=== PATIENT | male | born 1960 | race American Indian/Alaskan Native ===

== ENCOUNTER 2016-11-17 13:11 | Inpatient (IN) | payer MEDICAID ==
[~2016-11-17] VITALS: Ht 195.6 cm; Wt 150.2 kg
[~2016-11-17 13:11] MED LIST: DIVA500T17 PO; GABA600T2 PO; LACO200T PO; LAMO25TA PO; LEVE10007 PO; OXYC5TAB3 PO; VENL150C PO
[2016-11-17] MEDS ORDERED: SODIUM CHLORIDE FLUSH 10ML SYR IVF ONE (13:30)
[2016-11-17 14:01] LABS: HEMOGLOBIN 11.7 g/dL (13.7-18.0); WHITE BLOOD COUNT 8.4 x10^3/uL (3.4-10)
[2016-11-17 14:05] LABS: BLOOD UREA NITROGEN 8 mg/dL (7-18)
[2016-11-17 14:10] LABS: ASPARTATE AMINO TRANSFERASE 20 U/L (15-37); IS PT STATUS REG ER OR PRE ER? YES
[2016-11-17] MEDS ORDERED: METH20TA5 PO (17:19)
[2016-11-17] MEDS ORDERED: LACO200T PO (17:19)
[2016-11-17] MEDS ORDERED: RIVA15TA PO (17:19)
[2016-11-17] MEDS ORDERED: HYDROcodone/APAP 5/325 TABLET PO ONE (17:30)
[2016-11-17] MEDS ORDERED: HYDROcodone/APAP 5/325 TABLET ONE (17:40)
[2016-11-17] MEDS ORDERED: HEPARIN 25,000 UNITS/500ML PMX 500 ML IV PRN (20:00)
[2016-11-17] MEDS ORDERED: HEPARIN 5,000 UNITS/ML, 1ML IV PRN (20:00)
[2016-11-17] MEDS ORDERED: HEPARIN 5,000 UNITS/ML, 1ML IV ONE (20:00)
[2016-11-17] MEDS ORDERED: SODIUM CHLORIDE FLUSH 10ML SYR IVF PRN (20:00)
[2016-11-17] MEDS ORDERED: HEPARIN 25,000 UNITS/500ML PMX 500 ML ONE (20:33)
[2016-11-17] MEDS ORDERED: HEPARIN 5,000 UNITS/ML, 1ML ONE (20:33)
[2016-11-17] MEDS ORDERED: LORazepam 2 MG/ML, 1ML ONE (20:34)
[2016-11-17] MEDS ORDERED: ONDANSETRON 2MG/ML, 2ML ONE (20:34)
[2016-11-17 21:51] VITALS: BP 117/72
[2016-11-17] MEDS ORDERED: ENALAPRILAT 1.25 MG/ML, 2ML IVPush PRN (23:00)
[2016-11-17] MEDS ORDERED: hydrALAzine 20 MG/ML, 1ML IVPush PRN (23:00)
[2016-11-17] MEDS: OXYcodone IR 5MG TABLET PO PRN (23:17)
[2016-11-17] MEDS: FUROSEMIDE 20 MG/2 ML IV SCH (23:18)
[2016-11-18] MEDS ORDERED: LACOSAMIDE 200 MG PO SCH
[2016-11-18] MEDS: LEVETIRACETAM 500 MG TABLET PO SCH ×3 (00:08→20:48)
[2016-11-18] MEDS: DIVALPROEX 500 MG TAB.ER.24H PO SCH ×2 (00:09→20:49)
[2016-11-18] MEDS: LACOSAMIDE 50 MG TABLET PO SCH ×3 (00:11→20:49)
[2016-11-18] MEDS: morphine SULFATE 10 MG/ML, 1ML IVPush PRN ×5 (01:59→22:34)
[2016-11-18 02:05] VITALS: BP 115/69
[2016-11-18 03:45] LABS: HEMOGLOBIN 11.1 g/dL (13.7-18.0); WHITE BLOOD COUNT 6.8 x10^3/uL (3.4-10)
[2016-11-18 04:04] LABS: ASPARTATE AMINO TRANSFERASE 15 U/L (15-37); BLOOD UREA NITROGEN 11 mg/dL (7-18)
[2016-11-18 07:30] VITALS: BP 107/69
[2016-11-18] MEDS: FUROSEMIDE 20 MG/2 ML IV SCH (07:54)
[2016-11-18] MEDS: SENNA/DOCUSATE TABLET PO SCH ×2 (07:55→08:05)
[2016-11-18] MEDS: LAMOTRIGINE 25 MG TABLET PO SCH ×2 (07:55→20:48)
[2016-11-18] MEDS: GABAPENTIN 400 MG CAPSULE PO SCH ×2 (07:56→20:49)
[2016-11-18] MEDS: VENLAFAXINE 75 MG CAP ER PO SCH (07:59)
[2016-11-18] MEDS: METHYLPHENIDATE HCL 27 MG HOMEMEDPO SCH ×2 (08:11→20:54)
[2016-11-18] MEDS ORDERED: HEPARIN 5,000 UNITS/ML, 1ML IV PRN (10:00)
[2016-11-18 13:08] VITALS: BP 101/66
[2016-11-18] MEDS: HEPARIN 25,000 UNITS/500ML PMX 500 ML IV PRN (14:35)
[2016-11-18] MEDS ORDERED: LIDOCAINE 2%, 20ML ONE (15:58)
[2016-11-18] MEDS ORDERED: VISIPAQUE 320MG/ML, 50ML BOTTLE ONE (16:00)
[2016-11-18] MEDS ORDERED: FENTANYL PF 100 MCG/2ML ONE ×2 (16:09→17:31)
[2016-11-18] MEDS ORDERED: MIDAZOLAM 1 MG/ML, 5ML ONE ×2 (16:09→17:31)
[2016-11-18] MEDS ORDERED: ALTEPLASE 10 MG in SODIUM CHLORIDE 0.9% 90 ML IV SCH ×3 (16:30→20:30)
[2016-11-18] MEDS: OXYcodone IR 5MG TABLET PO PRN (20:25)
[2016-11-18] MEDS: ALTEPLASE 10 MG in SODIUM CHLORIDE 0.9% 90 ML IV SCH (23:58)
[2016-11-19] MEDS: OXYcodone IR 5MG TABLET PO PRN ×4 (00:33→19:22)
[2016-11-19] MEDS: morphine SULFATE 10 MG/ML, 1ML IVPush PRN ×4 (02:06→21:06)
[2016-11-19] MEDS: ALTEPLASE 10 MG in SODIUM CHLORIDE 0.9% 90 ML IV SCH (04:34)
[2016-11-19] MEDS: HEPARIN 25,000 UNITS/500ML PMX 500 ML IV PRN ×2 (04:46→19:19)
[2016-11-19 06:14] LABS: HEMATOCRIT 34.2 % (39.2-51.8); HEMOGLOBIN 11.4 g/dL (13.7-18.0); WHITE BLOOD COUNT 7.7 x10^3/uL (3.4-10)
[2016-11-19 06:28] LABS: BLOOD UREA NITROGEN 12 mg/dL (7-18)
[2016-11-19] MEDS: METHYLPHENIDATE HCL 27 MG HOMEMEDPO SCH ×2 (08:40→20:53)
[2016-11-19] MEDS: SENNA/DOCUSATE TABLET PO SCH (09:00)
[2016-11-19] MEDS: VENLAFAXINE 75 MG CAP ER PO SCH (09:13)
[2016-11-19] MEDS: LACOSAMIDE 50 MG TABLET PO SCH ×2 (09:13→20:52)
[2016-11-19] MEDS: LAMOTRIGINE 25 MG TABLET PO SCH ×2 (10:03→21:33)
[2016-11-19] MEDS: GABAPENTIN 400 MG CAPSULE PO SCH ×2 (10:03→20:52)
[2016-11-19] MEDS: LEVETIRACETAM 500 MG TABLET PO SCH ×2 (10:03→20:51)
[2016-11-19] MEDS ORDERED: NALOXONE 1 MG/ML, 2ML ONE (11:54)
[2016-11-19] MEDS ORDERED: MIDAZOLAM 1 MG/ML, 5ML ONE (11:54)
[2016-11-19] MEDS ORDERED: FENTANYL PF 100 MCG/2ML ONE (11:54)
[2016-11-19] MEDS ORDERED: FLUMAZENIL 0.1 MG/1 ML, 5ML ONE (11:54)
[2016-11-19] MEDS ORDERED: VISIPAQUE 270 MG/ML, 50ML BOTTLE ONE (13:17)
[2016-11-19] MEDS ORDERED: ALTEPLASE 10 MG in SODIUM CHLORIDE 0.9% 90 ML IV SCH (14:00)
[2016-11-19] MEDS: DIVALPROEX 500 MG TAB.ER.24H PO SCH (20:51)
[2016-11-20] MEDS: OXYcodone IR 5MG TABLET PO PRN ×3 (00:15→16:47)
[2016-11-20] MEDS: morphine SULFATE 10 MG/ML, 1ML IVPush PRN ×3 (02:33→20:46)
[2016-11-20 04:18] LABS: HEMATOCRIT 31.9 % (39.2-51.8); HEMOGLOBIN 10.6 g/dL (13.7-18.0); WHITE BLOOD COUNT 6.8 x10^3/uL (3.4-10)
[2016-11-20 04:30] LABS: ASPARTATE AMINO TRANSFERASE 29 U/L (15-37); BLOOD UREA NITROGEN 10 mg/dL (7-18)
[2016-11-20 05:07] VITALS: BP 108/50
[2016-11-20] MEDS: METHYLPHENIDATE HCL 27 MG HOMEMEDPO SCH ×2 (07:25→20:55)
[2016-11-20] MEDS: SENNA/DOCUSATE TABLET PO SCH (07:28)
[2016-11-20] MEDS: GABAPENTIN 400 MG CAPSULE PO SCH ×2 (07:51→20:55)
[2016-11-20] MEDS: LACOSAMIDE 50 MG TABLET PO SCH ×2 (07:51→20:55)
[2016-11-20] MEDS: LAMOTRIGINE 25 MG TABLET PO SCH ×2 (07:51→20:54)
[2016-11-20] MEDS: VENLAFAXINE 75 MG CAP ER PO SCH (07:52)
[2016-11-20] MEDS: LEVETIRACETAM 500 MG TABLET PO SCH ×2 (07:52→20:55)
[2016-11-20] MEDS: HEPARIN 25,000 UNITS/500ML PMX 500 ML IV PRN (10:33)
[2016-11-20] MEDS ORDERED: FENTANYL PF 100 MCG/2ML ONE (13:10)
[2016-11-20] MEDS ORDERED: MIDAZOLAM 1 MG/ML, 5ML ONE (13:10)
[2016-11-20] MEDS ORDERED: FLUMAZENIL 0.1 MG/1 ML, 5ML ONE (13:10)
[2016-11-20] MEDS ORDERED: NALOXONE 1 MG/ML, 2ML ONE (13:10)
[2016-11-20] MEDS ORDERED: VISIPAQUE 320MG/ML, 50ML BOTTLE ONE (15:26)
[2016-11-20 15:45] VITALS: BP 138/78
[2016-11-20 16:00] VITALS: BP 153/76
[2016-11-20] MEDS ORDERED: HEPARIN 5,000 UNITS/ML, 1ML IV ONE (16:00)
[2016-11-20] MEDS ORDERED: HEPARIN PROTOCOL IIB/IIIA POST-LYTIC MC PRN (16:00)
[2016-11-20] MEDS ORDERED: HEPARIN 25,000 UNITS/500ML PMX 500 ML IV PRN (16:00)
[2016-11-20 18:28] LABS: HEMATOCRIT 32.2 % (39.2-51.8); HEMOGLOBIN 10.5 g/dL (13.7-18.0); WHITE BLOOD COUNT 9.7 x10^3/uL (3.4-10)
[2016-11-20] MEDS: DIVALPROEX 500 MG TAB.ER.24H PO SCH (20:54)
[2016-11-21] MEDS: OXYcodone IR 5MG TABLET PO PRN ×5 (00:18→21:33)
[2016-11-21] MEDS: ONDANSETRON 2MG/ML, 2ML IVPush PRN (03:30)
[2016-11-21] MEDS: morphine SULFATE 10 MG/ML, 1ML IVPush PRN ×5 (03:47→23:09)
[2016-11-21 06:03] LABS: HEMATOCRIT 31.3 % (39.2-51.8); HEMOGLOBIN 10.6 g/dL (13.7-18.0); WHITE BLOOD COUNT 7.5 x10^3/uL (3.4-10)
[2016-11-21 06:09] LABS: BLOOD UREA NITROGEN 9 mg/dL (7-18)
[2016-11-21] MEDS: SENNA/DOCUSATE TABLET PO SCH (08:52)
[2016-11-21] MEDS: LACOSAMIDE 50 MG TABLET PO SCH ×2 (08:52→21:26)
[2016-11-21] MEDS: LEVETIRACETAM 500 MG TABLET PO SCH ×2 (08:58→21:27)
[2016-11-21] MEDS: GABAPENTIN 400 MG CAPSULE PO SCH ×2 (08:59→21:27)
[2016-11-21] MEDS: VENLAFAXINE 75 MG CAP ER PO SCH (09:00)
[2016-11-21] MEDS: LAMOTRIGINE 25 MG TABLET PO SCH ×2 (09:01→21:26)
[2016-11-21] MEDS: METHYLPHENIDATE HCL 27 MG HOMEMEDPO SCH ×2 (09:01→21:00)
[2016-11-21] MEDS ORDERED: HEPARIN 5,000 UNITS/ML, 1ML IV ONE (09:30)
[2016-11-21] MEDS: HEPARIN 25,000 UNITS/500ML PMX 500 ML IV PRN ×2 (09:37→21:32)
[2016-11-21] MEDS: BISACODYL 10 MG SUPP PR PRN (16:58)
[2016-11-21] MEDS: HEPARIN 5,000 UNITS/ML, 1ML IV PRN (17:44)
[2016-11-21] MEDS ORDERED: WARFARIN 7.5 MG TABLET PO-COUM ONE (18:00)
[2016-11-21] MEDS: DIVALPROEX 500 MG TAB.ER.24H PO SCH (21:27)
[2016-11-21 23:35] VITALS: BP 100/62
[2016-11-22] MEDS: morphine SULFATE 10 MG/ML, 1ML IVPush PRN ×6 (03:34→22:19)
[2016-11-22 05:43] LABS: ANTI-Xa-UNFRACTIONATED HEP 0.03 IU/mL (0.30-0.70)
[2016-11-22 05:48] LABS: ASPARTATE AMINO TRANSFERASE 20 U/L (15-37); BLOOD UREA NITROGEN 8 mg/dL (7-18)
[2016-11-22 05:49] LABS: HEMATOCRIT 30.7 % (39.2-51.8); HEMOGLOBIN 10.1 g/dL (13.7-18.0); WHITE BLOOD COUNT 5.3 x10^3/uL (3.4-10)
[2016-11-22] MEDS: HEPARIN 5,000 UNITS/ML, 1ML IV PRN (06:08)
[2016-11-22] MEDS: OXYcodone IR 5MG TABLET PO PRN ×4 (06:12→20:36)
[2016-11-22] MEDS: METHYLPHENIDATE HCL 27 MG HOMEMEDPO SCH ×2 (07:36→14:04)
[2016-11-22 08:00] VITALS: BP 111/59
[2016-11-22] MEDS: VENLAFAXINE 75 MG CAP ER PO SCH (08:10)
[2016-11-22] MEDS: GABAPENTIN 400 MG CAPSULE PO SCH ×2 (08:10→20:40)
[2016-11-22] MEDS: LAMOTRIGINE 25 MG TABLET PO SCH ×2 (08:11→20:39)
[2016-11-22] MEDS: SENNA/DOCUSATE TABLET PO SCH (08:11)
[2016-11-22] MEDS: LEVETIRACETAM 500 MG TABLET PO SCH ×2 (08:11→20:39)
[2016-11-22] MEDS: LACOSAMIDE 50 MG TABLET PO SCH ×2 (08:11→20:43)
[2016-11-22] MEDS: HEPARIN 25,000 UNITS/500ML PMX 500 ML IV PRN (11:40)
[2016-11-22] MEDS ORDERED: ARGATROBAN MC ONE (12:00)
[2016-11-22] MEDS ORDERED: HEPARIN MC ONE (12:00)
[2016-11-22] MEDS: WARFARIN MODERAT DOSE PROTOCOL XX SCH (12:00)
[2016-11-22] MEDS ORDERED: ARGATROBAN/NACL 50 MG/50 ML 50 ML IV PRN (12:00)
[2016-11-22 14:26] VITALS: BP 122/63
[2016-11-22] MEDS ORDERED: ARGATROBAN 250 MG in SODIUM CHLORIDE 0.9% 250 ML IV PRN (16:30)
[2016-11-22] MEDS ORDERED: WARFARIN 10 MG TABLET PO-COUM ONE (18:00)
[2016-11-22 19:16] VITALS: BP 118/54
[2016-11-22] MEDS: DIVALPROEX 500 MG TAB.ER.24H PO SCH (20:39)
[2016-11-22 21:04] VITALS: BP 113/62
[2016-11-23] MEDS: OXYcodone IR 5MG TABLET PO PRN ×4 (00:47→18:13)
[2016-11-23 01:16] VITALS: BP 110/71
[2016-11-23] MEDS: ARGATROBAN 250 MG in SODIUM CHLORIDE 0.9% 250 ML IV PRN ×2 (03:52→15:43)
[2016-11-23] MEDS: morphine SULFATE 10 MG/ML, 1ML IVPush PRN ×4 (03:57→21:06)
[2016-11-23 06:28] LABS: HEMATOCRIT 28.1 % (39.2-51.8); HEMOGLOBIN 9.5 g/dL (13.7-18.0); WHITE BLOOD COUNT 6.4 x10^3/uL (3.4-10)
[2016-11-23 06:46] LABS: ASPARTATE AMINO TRANSFERASE 19 U/L (15-37); BLOOD UREA NITROGEN 10 mg/dL (7-18)
[2016-11-23 08:20] VITALS: BP 122/70
[2016-11-23] MEDS: METHYLPHENIDATE HCL 27 MG HOMEMEDPO SCH (09:00)
[2016-11-23] MEDS: LAMOTRIGINE 25 MG TABLET PO SCH ×2 (09:05→20:45)
[2016-11-23] MEDS: LEVETIRACETAM 500 MG TABLET PO SCH ×2 (09:05→20:45)
[2016-11-23] MEDS: VENLAFAXINE 75 MG CAP ER PO SCH (09:05)
[2016-11-23] MEDS: SENNA/DOCUSATE TABLET PO SCH (09:06)
[2016-11-23] MEDS: GABAPENTIN 400 MG CAPSULE PO SCH ×2 (09:06→20:44)
[2016-11-23] MEDS: LACOSAMIDE 50 MG TABLET PO SCH ×2 (09:07→20:45)
[2016-11-23] MEDS: WARFARIN MODERAT DOSE PROTOCOL XX SCH (11:31)
[2016-11-23 14:23] VITALS: BP 124/76
[2016-11-23] MEDS ORDERED: WARFARIN 2.5 MG TABLET PO-COUM SCH (18:00)
[2016-11-23 20:00] VITALS: BP 112/65
[2016-11-23] MEDS: DIVALPROEX 500 MG TAB.ER.24H PO SCH (20:44)
[2016-11-24] MEDS: OXYcodone IR 5MG TABLET PO PRN ×5 (00:10→22:55)
[2016-11-24 01:23] VITALS: BP 102/64
[2016-11-24] MEDS: ARGATROBAN 250 MG in SODIUM CHLORIDE 0.9% 250 ML IV PRN ×2 (03:02→14:12)
[2016-11-24 05:18] LABS: HEMATOCRIT 27.7 % (39.2-51.8); HEMOGLOBIN 9.4 g/dL (13.7-18.0); WHITE BLOOD COUNT 7.1 x10^3/uL (3.4-10)
[2016-11-24 05:28] LABS: BLOOD UREA NITROGEN 9 mg/dL (7-18)
[2016-11-24 05:32] LABS: ASPARTATE AMINO TRANSFERASE 14 U/L (15-37)
[2016-11-24] MEDS: morphine SULFATE 10 MG/ML, 1ML IVPush PRN ×2 (06:09→11:09)
[2016-11-24 08:35] VITALS: BP 110/54
[2016-11-24] MEDS: LACOSAMIDE 50 MG TABLET PO SCH ×2 (08:50→20:41)
[2016-11-24] MEDS: LEVETIRACETAM 500 MG TABLET PO SCH ×2 (08:51→20:41)
[2016-11-24] MEDS: SENNA/DOCUSATE TABLET PO SCH (08:51)
[2016-11-24] MEDS: GABAPENTIN 400 MG CAPSULE PO SCH ×2 (08:51→20:41)
[2016-11-24] MEDS: LAMOTRIGINE 25 MG TABLET PO SCH ×2 (08:52→20:41)
[2016-11-24] MEDS: VENLAFAXINE 75 MG CAP ER PO SCH (08:52)
[2016-11-24] MEDS: WARFARIN MODERAT DOSE PROTOCOL XX SCH (12:00)
[2016-11-24 12:17] VITALS: BP 119/62
[2016-11-24] MEDS: DIAZEPAM 2 MG TABLET PO PRN (17:33)
[2016-11-24] MEDS ORDERED: WARFARIN 7.5 MG TABLET PO-COUM SCH (18:00)
[2016-11-24 19:56] VITALS: BP 139/68
[2016-11-24] MEDS: DIVALPROEX 500 MG TAB.ER.24H PO SCH (20:41)
[2016-11-25] MEDS: ARGATROBAN 250 MG in SODIUM CHLORIDE 0.9% 250 ML IV PRN ×3 (01:57→23:55)
[2016-11-25 02:34] VITALS: BP 119/63
[2016-11-25] MEDS: OXYcodone IR 5MG TABLET PO PRN ×4 (04:13→21:47)
[2016-11-25] MEDS: VENLAFAXINE 75 MG CAP ER PO SCH (06:50)
[2016-11-25] MEDS: DIAZEPAM 2 MG TABLET PO PRN (06:57)
[2016-11-25 07:51] VITALS: BP 119/66
[2016-11-25] MEDS: MORPHINE SULFATE 4 MG/ML, 1ML IVPush PRN ×3 (07:54→17:26)
[2016-11-25] MEDS: LAMOTRIGINE 25 MG TABLET PO SCH ×2 (09:41→21:47)
[2016-11-25] MEDS: LEVETIRACETAM 500 MG TABLET PO SCH ×2 (09:42→21:46)
[2016-11-25] MEDS: GABAPENTIN 400 MG CAPSULE PO SCH ×2 (09:42→21:47)
[2016-11-25] MEDS: LACOSAMIDE 50 MG TABLET PO SCH ×2 (09:42→21:47)
[2016-11-25] MEDS: SENNA/DOCUSATE TABLET PO SCH (09:42)
[2016-11-25] MEDS: WARFARIN MODERAT DOSE PROTOCOL XX SCH (12:00)
[2016-11-25 15:00] VITALS: BP 122/66
[2016-11-25] MEDS: METHYLNALTREXONE 12 MG/0.6 ML SQ SCH (16:07)
[2016-11-25 16:44] VITALS: BP 126/67
[2016-11-25] MEDS ORDERED: WARFARIN 5 MG TABLET PO-COUM ONE (18:00)
[2016-11-25 20:07] VITALS: BP 121/67
[2016-11-25] MEDS: DIVALPROEX 500 MG TAB.ER.24H PO SCH (21:46)
[2016-11-26 02:55] VITALS: BP 129/62
[2016-11-26] MEDS: MORPHINE SULFATE 4 MG/ML, 1ML IVPush PRN ×5 (03:15→22:04)
[2016-11-26] MEDS: OXYcodone IR 5MG TABLET PO PRN ×5 (04:54→21:01)
[2016-11-26 06:02] LABS: HEMOGLOBIN 9.4 g/dL (13.7-18.0); WHITE BLOOD COUNT 10.4 x10^3/uL (3.4-10)
[2016-11-26 06:06] LABS: BLOOD UREA NITROGEN 12 mg/dL (7-18)
[2016-11-26 06:17] LABS: ASPARTATE AMINO TRANSFERASE 11 U/L (15-37)
[2016-11-26] MEDS: DIAZEPAM 2 MG TABLET PO PRN (06:34)
[2016-11-26 08:00] VITALS: BP 153/79
[2016-11-26] MEDS: LEVETIRACETAM 500 MG TABLET PO SCH ×2 (08:12→21:02)
[2016-11-26] MEDS: LACOSAMIDE 50 MG TABLET PO SCH ×2 (08:13→21:02)
[2016-11-26] MEDS: LAMOTRIGINE 25 MG TABLET PO SCH ×2 (08:13→21:02)
[2016-11-26] MEDS: SENNA/DOCUSATE TABLET PO SCH (08:13)
[2016-11-26] MEDS: GABAPENTIN 400 MG CAPSULE PO SCH ×2 (08:13→21:02)
[2016-11-26] MEDS: VENLAFAXINE 75 MG CAP ER PO SCH (08:14)
[2016-11-26] MEDS ORDERED: morphine SULFATE 10 MG/ML, 1ML ONE ×2 (09:36→13:57)
[2016-11-26] MEDS: WARFARIN MODERAT DOSE PROTOCOL XX SCH (12:00)
[2016-11-26 14:52] VITALS: BP 149/84
[2016-11-26] MEDS ORDERED: WARFARIN 2.5 MG TABLET PO-COUM SCH (18:00)
[2016-11-26] MEDS ORDERED: WARFARIN 5 MG TABLET PO-COUM SCH (18:00)
[2016-11-26 19:44] VITALS: BP 114/60
[2016-11-26] MEDS: DIVALPROEX 500 MG TAB.ER.24H PO SCH (21:02)
[2016-11-27] MEDS: OXYcodone IR 5MG TABLET PO PRN ×4 (00:01→21:56)
[2016-11-27 00:18] VITALS: BP 151/94
[2016-11-27] MEDS ORDERED: morphine SULFATE 10 MG/ML, 1ML ONE ×2 (02:28→06:47)
[2016-11-27] MEDS: MORPHINE SULFATE 4 MG/ML, 1ML IVPush PRN ×3 (02:33→11:38)
[2016-11-27 08:30] VITALS: BP 126/67
[2016-11-27] MEDS: LEVETIRACETAM 500 MG TABLET PO SCH ×2 (08:35→20:33)
[2016-11-27] MEDS: VENLAFAXINE 75 MG CAP ER PO SCH (08:35)
[2016-11-27] MEDS: LAMOTRIGINE 25 MG TABLET PO SCH ×2 (08:36→20:32)
[2016-11-27] MEDS: GABAPENTIN 400 MG CAPSULE PO SCH ×2 (08:36→20:34)
[2016-11-27] MEDS: LACOSAMIDE 50 MG TABLET PO SCH ×2 (08:36→20:33)
[2016-11-27] MEDS: SENNA/DOCUSATE TABLET PO SCH (09:00)
[2016-11-27] MEDS: WARFARIN MODERAT DOSE PROTOCOL XX SCH (12:00)
[2016-11-27] MEDS ORDERED: FUROSEMIDE 20 MG/2 ML IV ONE (13:00)
[2016-11-27] MEDS: METHYLNALTREXONE 12 MG/0.6 ML SQ SCH (13:54)
[2016-11-27 14:30] VITALS: BP 130/76
[2016-11-27] MEDS ORDERED: WARFARIN 5 MG TABLET PO-COUM SCH (18:00)
[2016-11-27] MEDS ORDERED: MORPHINE SULFATE 4 MG/ML, 1ML IVPush PRN (20:00)
[2016-11-27] MEDS: DIVALPROEX 500 MG TAB.ER.24H PO SCH (20:34)
[2016-11-27 20:44] VITALS: BP 144/78
[2016-11-27] MEDS: DIAZEPAM 2 MG TABLET PO PRN (21:56)
[2016-11-28 01:42] VITALS: BP 106/61
[2016-11-28] MEDS: OXYcodone IR 5MG TABLET PO PRN ×5 (02:21→21:07)
[2016-11-28] MEDS: DIAZEPAM 2 MG TABLET PO PRN ×2 (05:35→21:07)
[2016-11-28 08:04] VITALS: BP 147/84
[2016-11-28] MEDS: VENLAFAXINE 75 MG CAP ER PO SCH (08:56)
[2016-11-28] MEDS: FUROSEMIDE 20 MG/2 ML IV SCH (08:56)
[2016-11-28] MEDS: LAMOTRIGINE 25 MG TABLET PO SCH ×2 (08:57→21:07)
[2016-11-28] MEDS: GABAPENTIN 400 MG CAPSULE PO SCH ×2 (08:57→21:06)
[2016-11-28] MEDS: LACOSAMIDE 50 MG TABLET PO SCH ×2 (08:57→21:07)
[2016-11-28] MEDS: LEVETIRACETAM 500 MG TABLET PO SCH ×2 (08:57→21:07)
[2016-11-28] MEDS: SENNA/DOCUSATE TABLET PO SCH (08:58)
[2016-11-28] MEDS: WARFARIN MODERAT DOSE PROTOCOL XX SCH (12:00)
[2016-11-28 15:53] VITALS: BP 140/85
[2016-11-28] MEDS ORDERED: WARFARIN 5 MG TABLET PO-COUM SCH (18:00)
[2016-11-28 20:34] VITALS: BP 113/56
[2016-11-28] MEDS: DIVALPROEX 500 MG TAB.ER.24H PO SCH (21:07)
[2016-11-29 02:00] VITALS: BP 120/77
[2016-11-29] MEDS: OXYcodone IR 5MG TABLET PO PRN ×5 (02:22→21:25)
[2016-11-29 04:40] LABS: HEMATOCRIT 26.7 % (39.2-51.8); HEMOGLOBIN 8.8 g/dL (13.7-18.0); WHITE BLOOD COUNT 8.8 x10^3/uL (3.4-10)
[2016-11-29 04:47] LABS: BLOOD UREA NITROGEN 9 mg/dL (7-18)
[2016-11-29 04:48] LABS: ASPARTATE AMINO TRANSFERASE 14 U/L (15-37)
[2016-11-29 07:21] VITALS: BP 107/57
[2016-11-29] MEDS: FUROSEMIDE 20 MG/2 ML IV SCH (09:05)
[2016-11-29] MEDS: LEVETIRACETAM 500 MG TABLET PO SCH ×2 (09:06→21:25)
[2016-11-29] MEDS: POLYETHYLENE GLYCOL 17 GM PACKET PO PRN (09:06)
[2016-11-29] MEDS: LACOSAMIDE 50 MG TABLET PO SCH ×2 (09:06→21:25)
[2016-11-29] MEDS: SENNA/DOCUSATE TABLET PO SCH (09:06)
[2016-11-29] MEDS: GABAPENTIN 400 MG CAPSULE PO SCH ×2 (09:06→21:25)
[2016-11-29] MEDS: LAMOTRIGINE 25 MG TABLET PO SCH ×2 (09:07→21:25)
[2016-11-29] MEDS: VENLAFAXINE 75 MG CAP ER PO SCH (09:07)
[2016-11-29] MEDS: DIAZEPAM 2 MG TABLET PO PRN ×2 (10:45→21:25)
[2016-11-29] MEDS: WARFARIN MODERAT DOSE PROTOCOL XX SCH (11:17)
[2016-11-29] MEDS: ACETAMINOPHEN 325 MG TABLET PO PRN (15:28)
[2016-11-29] MEDS: METHYLNALTREXONE 12 MG/0.6 ML SQ SCH (15:29)
[2016-11-29 15:33] VITALS: BP 116/53
[2016-11-29] MEDS ORDERED: hydrALAzine 20 MG/ML, 1ML IVPush PRN (16:30)
[2016-11-29] MEDS ORDERED: ENALAPRILAT 1.25 MG/ML, 2ML IVPush PRN (16:30)
[2016-11-29] MEDS ORDERED: WARFARIN 1 MG TABLET PO-COUM SCH (18:00)
[2016-11-29 20:00] VITALS: BP 99/51
[2016-11-29] MEDS: DIVALPROEX 500 MG TAB.ER.24H PO SCH (21:25)
[2016-11-30 02:00] VITALS: BP 119/58
[2016-11-30] MEDS: OXYcodone IR 5MG TABLET PO PRN ×6 (02:37→21:11)
[2016-11-30] MEDS: DIAZEPAM 2 MG TABLET PO PRN (05:54)
[2016-11-30 08:30] VITALS: BP 133/72
[2016-11-30] MEDS: SENNA/DOCUSATE TABLET PO SCH (08:30)
[2016-11-30] MEDS: FUROSEMIDE 20 MG/2 ML IV SCH (08:30)
[2016-11-30] MEDS: POLYETHYLENE GLYCOL 17 GM PACKET PO PRN (08:31)
[2016-11-30] MEDS: ACETAMINOPHEN 325 MG TABLET PO PRN ×2 (08:31→14:57)
[2016-11-30] MEDS: GABAPENTIN 400 MG CAPSULE PO SCH ×2 (08:31→21:09)
[2016-11-30] MEDS: LACOSAMIDE 50 MG TABLET PO SCH ×2 (08:31→21:10)
[2016-11-30] MEDS: LAMOTRIGINE 25 MG TABLET PO SCH ×2 (08:31→21:10)
[2016-11-30] MEDS: LEVETIRACETAM 500 MG TABLET PO SCH ×2 (08:31→21:10)
[2016-11-30] MEDS: VENLAFAXINE 75 MG CAP ER PO SCH (08:31)
[2016-11-30] MEDS ORDERED: PINK LADY ENEMA 1,000 ML PR PRN (10:30)
[2016-11-30] MEDS ORDERED: BISACODYL 10 MG SUPP PR PRN (10:30)
[2016-11-30] MEDS: WARFARIN MODERAT DOSE PROTOCOL XX SCH (11:00)
[2016-11-30] MEDS ORDERED: HYDR-3237 PO (11:27)
[2016-11-30 14:30] VITALS: BP 116/53
[2016-11-30] MEDS: BISACODYL 10 MG SUPP PR PRN (14:57)
[2016-11-30] MEDS ORDERED: WARFARIN 2.5 MG TABLET PO-COUM SCH (18:00)
[2016-11-30 20:00] VITALS: BP 130/68
[2016-11-30] MEDS: DIVALPROEX 500 MG TAB.ER.24H PO SCH (21:10)
[2016-12-01] MEDS: OXYcodone IR 5MG TABLET PO PRN ×7 (01:13→22:46)
[2016-12-01 02:00] VITALS: BP 123/65
[2016-12-01] MEDS: ACETAMINOPHEN 325 MG TABLET PO PRN ×3 (04:16→17:30)
[2016-12-01 05:50] LABS: HEMATOCRIT 26.4 % (39.2-51.8); HEMOGLOBIN 8.6 g/dL (13.7-18.0); WHITE BLOOD COUNT 8.4 x10^3/uL (3.4-10)
[2016-12-01 06:03] LABS: BLOOD UREA NITROGEN 11 mg/dL (7-18)
[2016-12-01 08:30] VITALS: BP 109/59
[2016-12-01] MEDS: SENNA/DOCUSATE TABLET PO SCH (09:04)
[2016-12-01] MEDS: FUROSEMIDE 20 MG/2 ML IV SCH (09:04)
[2016-12-01] MEDS: LACOSAMIDE 50 MG TABLET PO SCH ×2 (09:04→19:47)
[2016-12-01] MEDS: GABAPENTIN 400 MG CAPSULE PO SCH ×2 (09:04→19:47)
[2016-12-01] MEDS: LEVETIRACETAM 500 MG TABLET PO SCH ×2 (09:04→19:47)
[2016-12-01] MEDS: VENLAFAXINE 75 MG CAP ER PO SCH (09:05)
[2016-12-01] MEDS: LAMOTRIGINE 25 MG TABLET PO SCH ×2 (09:05→19:46)
[2016-12-01] MEDS: POLYETHYLENE GLYCOL 17 GM PACKET PO PRN (09:39)
[2016-12-01] MEDS ORDERED: FUROSEMIDE 20 MG/2 ML IV ONE (10:30)
[2016-12-01] MEDS: DIAZEPAM 2 MG TABLET PO PRN (11:38)
[2016-12-01] MEDS: WARFARIN MODERAT DOSE PROTOCOL XX SCH (12:00)
[2016-12-01] MEDS: METHYLNALTREXONE 12 MG/0.6 ML SQ SCH (14:30)
[2016-12-01 15:40] VITALS: BP 110/60
[2016-12-01] MEDS ORDERED: WARFARIN 2 MG TABLET PO-COUM ONE (18:00)
[2016-12-01] MEDS: DIVALPROEX 500 MG TAB.ER.24H PO SCH (19:47)
[2016-12-01 20:00] VITALS: BP 141/65
[2016-12-02] MEDS: DIAZEPAM 2 MG TABLET PO PRN ×2 (00:05→06:03)
[2016-12-02] MEDS: OXYcodone IR 5MG TABLET PO PRN ×7 (01:56→23:18)
[2016-12-02 02:00] VITALS: BP 134/73
[2016-12-02 06:10] LABS: BLOOD UREA NITROGEN 10 mg/dL (7-18)
[2016-12-02] MEDS: SENNA/DOCUSATE TABLET PO SCH (08:27)
[2016-12-02] MEDS: LAMOTRIGINE 25 MG TABLET PO SCH ×2 (08:27→20:08)
[2016-12-02] MEDS: GABAPENTIN 400 MG CAPSULE PO SCH ×2 (08:27→20:09)
[2016-12-02] MEDS: LEVETIRACETAM 500 MG TABLET PO SCH ×2 (08:27→20:09)
[2016-12-02] MEDS: LACOSAMIDE 50 MG TABLET PO SCH ×2 (08:28→20:08)
[2016-12-02] MEDS: VENLAFAXINE 75 MG CAP ER PO SCH (08:28)
[2016-12-02] MEDS: FUROSEMIDE 20 MG/2 ML IV SCH (08:28)
[2016-12-02 09:00] VITALS: BP 120/59
[2016-12-02] MEDS: WARFARIN MODERAT DOSE PROTOCOL XX SCH (12:00)
[2016-12-02 16:48] VITALS: BP 141/66
[2016-12-02] MEDS ORDERED: WARFARIN 2 MG TABLET PO-COUM ONE (18:00)
[2016-12-02 19:43] VITALS: BP 148/78
[2016-12-02] MEDS: DIVALPROEX 500 MG TAB.ER.24H PO SCH (20:09)
[2016-12-03 02:00] VITALS: BP 146/81
[2016-12-03] MEDS: OXYcodone IR 5MG TABLET PO PRN ×5 (03:00→21:30)
[2016-12-03 07:02] VITALS: BP 146/71
[2016-12-03] MEDS: VENLAFAXINE 75 MG CAP ER PO SCH (08:21)
[2016-12-03] MEDS: LEVETIRACETAM 500 MG TABLET PO SCH ×2 (08:21→21:31)
[2016-12-03] MEDS: FUROSEMIDE 20 MG/2 ML IV SCH (08:21)
[2016-12-03] MEDS: LAMOTRIGINE 25 MG TABLET PO SCH ×2 (08:21→21:30)
[2016-12-03] MEDS: SENNA/DOCUSATE TABLET PO SCH (08:22)
[2016-12-03] MEDS: LACOSAMIDE 50 MG TABLET PO SCH ×2 (08:22→21:30)
[2016-12-03] MEDS: GABAPENTIN 400 MG CAPSULE PO SCH ×2 (08:22→21:30)
[2016-12-03] MEDS: WARFARIN MODERAT DOSE PROTOCOL XX SCH (12:00)
[2016-12-03 13:59] VITALS: BP 131/70
[2016-12-03] MEDS ORDERED: MORPHINE SULFATE 4 MG/ML, 1ML IVPush PRN (14:00)
[2016-12-03] MEDS: METHYLNALTREXONE 12 MG/0.6 ML SQ SCH (16:17)
[2016-12-03] MEDS ORDERED: WARFARIN 1 MG TABLET PO-COUM SCH (18:00)
[2016-12-03 19:22] VITALS: BP 129/74
[2016-12-03] MEDS: DIVALPROEX 500 MG TAB.ER.24H PO SCH (21:31)
[2016-12-04] MEDS: OXYcodone IR 5MG TABLET PO PRN ×3 (01:51→20:47)
[2016-12-04 01:57] VITALS: BP 138/73
[2016-12-04 08:00] VITALS: BP 155/89
[2016-12-04] MEDS: SENNA/DOCUSATE TABLET PO SCH (09:00)
[2016-12-04] MEDS: FUROSEMIDE 20 MG/2 ML IV SCH (09:08)
[2016-12-04] MEDS: LAMOTRIGINE 25 MG TABLET PO SCH ×2 (09:08→22:32)
[2016-12-04] MEDS: LEVETIRACETAM 500 MG TABLET PO SCH ×2 (09:08→20:47)
[2016-12-04] MEDS: VENLAFAXINE 75 MG CAP ER PO SCH (09:08)
[2016-12-04] MEDS: GABAPENTIN 400 MG CAPSULE PO SCH ×2 (09:08→20:47)
[2016-12-04] MEDS: LACOSAMIDE 50 MG TABLET PO SCH ×2 (09:09→20:47)
[2016-12-04] MEDS: WARFARIN MODERAT DOSE PROTOCOL XX SCH (12:00)
[2016-12-04 14:30] VITALS: BP 117/62
[2016-12-04] MEDS ORDERED: WARFARIN 1 MG TABLET PO-COUM ONE (18:00)
[2016-12-04 20:08] VITALS: BP 109/58
[2016-12-04] MEDS: DIVALPROEX 500 MG TAB.ER.24H PO SCH (20:47)
[2016-12-04] MEDS: DIAZEPAM 2 MG TABLET PO PRN (22:32)
[2016-12-05] MEDS: OXYcodone IR 5MG TABLET PO PRN ×4 (00:06→21:40)
[2016-12-05] MEDS: DIAZEPAM 2 MG TABLET PO PRN ×3 (00:07→23:40)
[2016-12-05 03:06] VITALS: BP 140/73
[2016-12-05 08:17] VITALS: BP 127/70
[2016-12-05] MEDS: VENLAFAXINE 75 MG CAP ER PO SCH (08:29)
[2016-12-05] MEDS: FUROSEMIDE 20 MG/2 ML IV SCH (08:30)
[2016-12-05] MEDS: LACOSAMIDE 50 MG TABLET PO SCH ×2 (08:30→21:46)
[2016-12-05] MEDS: SENNA/DOCUSATE TABLET PO SCH (08:30)
[2016-12-05] MEDS: LEVETIRACETAM 500 MG TABLET PO SCH ×2 (08:30→21:46)
[2016-12-05] MEDS: GABAPENTIN 400 MG CAPSULE PO SCH ×2 (08:30→21:46)
[2016-12-05] MEDS: LAMOTRIGINE 25 MG TABLET PO SCH ×2 (08:30→21:46)
[2016-12-05] MEDS: WARFARIN MODERAT DOSE PROTOCOL XX SCH (12:00)
[2016-12-05 14:05] VITALS: BP 116/67
[2016-12-05] MEDS: METHYLNALTREXONE 12 MG/0.6 ML SQ SCH (14:05)
[2016-12-05] MEDS ORDERED: WARFARIN 2 MG TABLET PO-COUM ONE (18:00)
[2016-12-05] MEDS ORDERED: MORPHINE SULFATE 4 MG/ML, 1ML IVPush PRN (20:00)
[2016-12-05] MEDS ORDERED: ENALAPRILAT 1.25 MG/ML, 2ML IVPush PRN (20:00)
[2016-12-05] MEDS ORDERED: hydrALAzine 20 MG/ML, 1ML IVPush PRN (20:00)
[2016-12-05 21:17] VITALS: BP 126/75
[2016-12-05] MEDS: DIVALPROEX 500 MG TAB.ER.24H PO SCH (21:46)
[2016-12-06] MEDS: OXYcodone IR 5MG TABLET PO PRN ×4 (03:13→21:24)
[2016-12-06 03:15] VITALS: BP 127/73
[2016-12-06] MEDS: DIAZEPAM 2 MG TABLET PO PRN ×2 (05:24→23:23)
[2016-12-06 08:40] VITALS: BP 91/52
[2016-12-06] MEDS: FUROSEMIDE 20 MG/2 ML IV SCH (09:16)
[2016-12-06] MEDS: LAMOTRIGINE 25 MG TABLET PO SCH ×2 (09:17→21:23)
[2016-12-06] MEDS: VENLAFAXINE 75 MG CAP ER PO SCH (09:17)
[2016-12-06] MEDS: LACOSAMIDE 50 MG TABLET PO SCH ×2 (09:17→21:24)
[2016-12-06] MEDS: LEVETIRACETAM 500 MG TABLET PO SCH ×2 (09:18→21:23)
[2016-12-06] MEDS: GABAPENTIN 400 MG CAPSULE PO SCH ×2 (09:18→21:23)
[2016-12-06] MEDS: SENNA/DOCUSATE TABLET PO SCH (09:18)
[2016-12-06] MEDS: WARFARIN MODERAT DOSE PROTOCOL XX SCH (12:00)
[2016-12-06] MEDS ORDERED: WARFARIN 3 MG TABLET PO-COUM SCH (18:00)
[2016-12-06 18:11] VITALS: BP 160/68
[2016-12-06 20:48] VITALS: BP 136/79
[2016-12-06] MEDS: DIVALPROEX 500 MG TAB.ER.24H PO SCH (21:23)
[2016-12-07] MEDS: OXYcodone IR 5MG TABLET PO PRN ×5 (01:43→21:01)
[2016-12-07 01:50] VITALS: BP 127/79
[2016-12-07] MEDS: DIAZEPAM 2 MG TABLET PO PRN ×3 (05:07→23:55)
[2016-12-07 07:49] VITALS: BP 139/72
[2016-12-07] MEDS: GABAPENTIN 400 MG CAPSULE PO SCH ×2 (08:07→21:00)
[2016-12-07] MEDS: LEVETIRACETAM 500 MG TABLET PO SCH ×2 (08:08→20:59)
[2016-12-07] MEDS: VENLAFAXINE 75 MG CAP ER PO SCH (08:08)
[2016-12-07] MEDS: LACOSAMIDE 50 MG TABLET PO SCH ×2 (08:08→21:01)
[2016-12-07] MEDS: SENNA/DOCUSATE TABLET PO SCH (08:08)
[2016-12-07] MEDS: LAMOTRIGINE 25 MG TABLET PO SCH ×2 (08:08→21:00)
[2016-12-07] MEDS: FUROSEMIDE 20 MG/2 ML IV SCH (08:09)
[2016-12-07] MEDS ORDERED: WARFARIN 5 MG TABLET PO-COUM ONE (11:00)
[2016-12-07] MEDS: WARFARIN MODERAT DOSE PROTOCOL XX SCH (11:13)
[2016-12-07 13:32] VITALS: BP 128/65
[2016-12-07] MEDS ORDERED: WARFARIN 5 MG TABLET PO-COUM SCH (18:00)
[2016-12-07 20:00] VITALS: BP 128/78
[2016-12-07] MEDS: DIVALPROEX 500 MG TAB.ER.24H PO SCH (20:59)
[2016-12-07] MEDS: METHYLNALTREXONE 12 MG/0.6 ML SQ SCH (21:00)
[2016-12-08 02:00] VITALS: BP 133/71
[2016-12-08] MEDS: OXYcodone IR 5MG TABLET PO PRN ×5 (04:25→23:43)
[2016-12-08] MEDS: LACOSAMIDE 50 MG TABLET PO SCH ×2 (07:59→21:17)
[2016-12-08] MEDS: FUROSEMIDE 20 MG/2 ML IV SCH (07:59)
[2016-12-08] MEDS: LAMOTRIGINE 25 MG TABLET PO SCH ×2 (08:00→21:15)
[2016-12-08] MEDS: LEVETIRACETAM 500 MG TABLET PO SCH ×2 (08:00→21:17)
[2016-12-08] MEDS: GABAPENTIN 400 MG CAPSULE PO SCH ×2 (08:00→21:18)
[2016-12-08] MEDS: SENNA/DOCUSATE TABLET PO SCH (08:00)
[2016-12-08] MEDS: VENLAFAXINE 75 MG CAP ER PO SCH (08:00)
[2016-12-08 08:48] VITALS: BP 115/70
[2016-12-08] MEDS: WARFARIN MODERAT DOSE PROTOCOL XX SCH (12:00)
[2016-12-08 14:13] VITALS: BP 117/61
[2016-12-08] MEDS ORDERED: WARFARIN 3 MG TABLET PO-COUM ONE (18:00)
[2016-12-08] MEDS: DIAZEPAM 2 MG TABLET PO PRN (20:14)
[2016-12-08 20:18] VITALS: BP 112/62
[2016-12-08] MEDS: DIVALPROEX 500 MG TAB.ER.24H PO SCH (21:16)
[2016-12-09 02:00] VITALS: BP 136/82
[2016-12-09] MEDS: OXYcodone IR 5MG TABLET PO PRN ×4 (02:59→20:57)
[2016-12-09 08:56] VITALS: BP 138/86
[2016-12-09] MEDS: SENNA/DOCUSATE TABLET PO SCH (09:00)
[2016-12-09] MEDS: VENLAFAXINE 75 MG CAP ER PO SCH (10:03)
[2016-12-09] MEDS: FUROSEMIDE 20 MG/2 ML IV SCH (10:03)
[2016-12-09] MEDS: LEVETIRACETAM 500 MG TABLET PO SCH ×2 (10:04→20:58)
[2016-12-09] MEDS: LACOSAMIDE 50 MG TABLET PO SCH ×2 (10:04→20:58)
[2016-12-09] MEDS: LAMOTRIGINE 25 MG TABLET PO SCH ×2 (10:05→20:58)
[2016-12-09] MEDS: GABAPENTIN 400 MG CAPSULE PO SCH ×2 (10:05→20:58)
[2016-12-09] MEDS: WARFARIN MODERAT DOSE PROTOCOL XX SCH (12:00)
[2016-12-09 15:41] VITALS: BP 127/72
[2016-12-09] MEDS ORDERED: WARFARIN 3 MG TABLET PO-COUM SCH (18:00)
[2016-12-09 20:00] VITALS: BP 127/70
[2016-12-09] MEDS: DIVALPROEX 500 MG TAB.ER.24H PO SCH (20:58)
[2016-12-09] MEDS: METHYLNALTREXONE 12 MG/0.6 ML SQ SCH (21:00)
[2016-12-10] MEDS: OXYcodone IR 5MG TABLET PO PRN ×6 (00:26→21:59)
[2016-12-10 01:14] VITALS: BP 140/76
[2016-12-10 06:30] LABS: BLOOD UREA NITROGEN 17 mg/dL (7-18)
[2016-12-10 07:22] VITALS: BP 137/73
[2016-12-10] MEDS: LACOSAMIDE 50 MG TABLET PO SCH ×2 (09:08→20:45)
[2016-12-10] MEDS: LAMOTRIGINE 25 MG TABLET PO SCH ×2 (09:08→20:44)
[2016-12-10] MEDS: VENLAFAXINE 75 MG CAP ER PO SCH (09:08)
[2016-12-10] MEDS: LEVETIRACETAM 500 MG TABLET PO SCH ×2 (09:08→20:44)
[2016-12-10] MEDS: FUROSEMIDE 40 MG TABLET PO SCH (09:09)
[2016-12-10] MEDS: GABAPENTIN 400 MG CAPSULE PO SCH ×2 (09:09→20:45)
[2016-12-10] MEDS: SENNA/DOCUSATE TABLET PO SCH (09:09)
[2016-12-10] MEDS: WARFARIN MODERAT DOSE PROTOCOL XX SCH (11:16)
[2016-12-10] MEDS: DIAZEPAM 2 MG TABLET PO PRN ×2 (11:22→18:20)
[2016-12-10 14:20] VITALS: BP 133/78
[2016-12-10] MEDS ORDERED: WARFARIN 5 MG TABLET PO-COUM SCH (18:00)
[2016-12-10] MEDS: DIVALPROEX 500 MG TAB.ER.24H PO SCH (20:44)
[2016-12-10 20:48] VITALS: BP 116/62
[2016-12-11] MEDS: DIAZEPAM 2 MG TABLET PO PRN ×3 (00:28→22:10)
[2016-12-11 02:07] VITALS: BP 129/64
[2016-12-11] MEDS: OXYcodone IR 5MG TABLET PO PRN ×4 (06:18→17:53)
[2016-12-11 08:30] VITALS: BP 125/71
[2016-12-11] MEDS: LACOSAMIDE 50 MG TABLET PO SCH ×2 (09:48→22:09)
[2016-12-11] MEDS: LAMOTRIGINE 25 MG TABLET PO SCH ×2 (09:48→22:10)
[2016-12-11] MEDS: VENLAFAXINE 75 MG CAP ER PO SCH (09:48)
[2016-12-11] MEDS: FUROSEMIDE 40 MG TABLET PO SCH (09:49)
[2016-12-11] MEDS: SENNA/DOCUSATE TABLET PO SCH (09:49)
[2016-12-11] MEDS: LEVETIRACETAM 500 MG TABLET PO SCH ×2 (09:49→22:09)
[2016-12-11] MEDS: GABAPENTIN 400 MG CAPSULE PO SCH ×2 (09:49→22:10)
[2016-12-11 14:30] VITALS: BP 144/71
[2016-12-11] MEDS ORDERED: WARFARIN 7.5 MG TABLET PO-COUM SCH (18:00)
[2016-12-11 20:44] VITALS: BP 123/71
[2016-12-11] MEDS: METHYLNALTREXONE 12 MG/0.6 ML SQ SCH (21:00)
[2016-12-11] MEDS: DIVALPROEX 500 MG TAB.ER.24H PO SCH (22:10)
[2016-12-12] MEDS: OXYcodone IR 5MG TABLET PO PRN ×6 (00:24→22:35)
[2016-12-12 02:24] VITALS: BP 115/62
[2016-12-12 05:38] LABS: HEMATOCRIT 32.4 % (39.2-51.8); HEMOGLOBIN 10.7 g/dL (13.7-18.0); WHITE BLOOD COUNT 6.8 x10^3/uL (3.4-10)
[2016-12-12 05:56] LABS: ASPARTATE AMINO TRANSFERASE 22 U/L (15-37); BLOOD UREA NITROGEN 15 mg/dL (7-18)
[2016-12-12 08:30] VITALS: BP 123/70
[2016-12-12] MEDS: SENNA/DOCUSATE TABLET PO SCH (09:23)
[2016-12-12] MEDS: FUROSEMIDE 40 MG TABLET PO SCH (09:23)
[2016-12-12] MEDS: LEVETIRACETAM 500 MG TABLET PO SCH ×2 (09:23→21:08)
[2016-12-12] MEDS: LACOSAMIDE 50 MG TABLET PO SCH ×2 (09:23→21:10)
[2016-12-12] MEDS: VENLAFAXINE 75 MG CAP ER PO SCH (09:23)
[2016-12-12] MEDS: GABAPENTIN 400 MG CAPSULE PO SCH ×2 (09:24→21:09)
[2016-12-12] MEDS: LAMOTRIGINE 25 MG TABLET PO SCH ×2 (09:24→21:00)
[2016-12-12 14:30] VITALS: BP 148/77
[2016-12-12 17:58] VITALS: BP 106/71
[2016-12-12] MEDS ORDERED: WARFARIN 7.5 MG TABLET PO-COUM SCH (18:00)
[2016-12-12] MEDS ORDERED: WARFARIN 10 MG TABLET PO-COUM SCH (18:00)
[2016-12-12 19:22] VITALS: BP 117/75
[2016-12-12] MEDS ORDERED: ENALAPRILAT 1.25 MG/ML, 2ML IVPush PRN (20:30)
[2016-12-12] MEDS: DIVALPROEX 500 MG TAB.ER.24H PO SCH (21:07)
[2016-12-12] MEDS: DIAZEPAM 2 MG TABLET PO PRN (21:21)
[2016-12-13] MEDS: OXYcodone IR 5MG TABLET PO PRN ×7 (01:35→23:26)
[2016-12-13 01:38] VITALS: BP 122/79
[2016-12-13] MEDS: DIAZEPAM 2 MG TABLET PO PRN ×2 (04:30→23:26)
[2016-12-13 07:40] VITALS: BP 119/76
[2016-12-13] MEDS: LEVETIRACETAM 500 MG TABLET PO SCH ×2 (08:14→20:19)
[2016-12-13] MEDS: GABAPENTIN 400 MG CAPSULE PO SCH ×2 (08:14→20:18)
[2016-12-13] MEDS: FUROSEMIDE 40 MG TABLET PO SCH (08:14)
[2016-12-13] MEDS: LACOSAMIDE 50 MG TABLET PO SCH ×2 (08:15→20:18)
[2016-12-13] MEDS: SENNA/DOCUSATE TABLET PO SCH (08:15)
[2016-12-13] MEDS: LAMOTRIGINE 25 MG TABLET PO SCH ×2 (08:15→20:19)
[2016-12-13] MEDS: VENLAFAXINE 75 MG CAP ER PO SCH (08:24)
[2016-12-13 14:54] VITALS: BP 137/82
[2016-12-13] MEDS ORDERED: WARFARIN 7.5 MG TABLET PO-COUM SCH (18:00)
[2016-12-13 19:29] VITALS: BP 108/70
[2016-12-13] MEDS: DIVALPROEX 500 MG TAB.ER.24H PO SCH (20:18)
[2016-12-13] MEDS: METHYLNALTREXONE 12 MG/0.6 ML SQ SCH (20:23)
[2016-12-14 01:07] VITALS: BP 104/70
[2016-12-14] MEDS: OXYcodone IR 5MG TABLET PO PRN ×3 (02:33→15:23)
[2016-12-14 07:15] VITALS: BP 123/81
[2016-12-14] MEDS: FUROSEMIDE 40 MG TABLET PO SCH (07:37)
[2016-12-14] MEDS: SENNA/DOCUSATE TABLET PO SCH (07:37)
[2016-12-14] MEDS: LACOSAMIDE 50 MG TABLET PO SCH ×2 (07:37→21:24)
[2016-12-14] MEDS: LAMOTRIGINE 25 MG TABLET PO SCH ×2 (07:38→21:24)
[2016-12-14] MEDS: LEVETIRACETAM 500 MG TABLET PO SCH ×2 (07:38→21:23)
[2016-12-14] MEDS: GABAPENTIN 400 MG CAPSULE PO SCH ×2 (07:38→21:24)
[2016-12-14] MEDS: VENLAFAXINE 75 MG CAP ER PO SCH (07:41)
[2016-12-14 13:21] VITALS: BP 108/70
[2016-12-14] MEDS ORDERED: WARFARIN 5 MG TABLET PO-COUM ONE (18:00)
[2016-12-14 20:13] VITALS: BP 111/74
[2016-12-14] MEDS: DIVALPROEX 500 MG TAB.ER.24H PO SCH (21:23)
[2016-12-14] MEDS: DIAZEPAM 2 MG TABLET PO PRN (21:44)
[2016-12-15] MEDS: OXYcodone IR 5MG TABLET PO PRN ×6 (00:51→23:20)
[2016-12-15 04:12] VITALS: BP 110/72
[2016-12-15 07:35] VITALS: BP 101/63
[2016-12-15] MEDS: LAMOTRIGINE 25 MG TABLET PO SCH ×2 (09:02→21:45)
[2016-12-15] MEDS: FUROSEMIDE 40 MG TABLET PO SCH (09:03)
[2016-12-15] MEDS: LEVETIRACETAM 500 MG TABLET PO SCH ×2 (09:03→21:45)
[2016-12-15] MEDS: VENLAFAXINE 75 MG CAP ER PO SCH (09:03)
[2016-12-15] MEDS: SENNA/DOCUSATE TABLET PO SCH (09:03)
[2016-12-15] MEDS: LACOSAMIDE 50 MG TABLET PO SCH ×2 (09:04→21:46)
[2016-12-15] MEDS: GABAPENTIN 400 MG CAPSULE PO SCH ×2 (09:05→21:46)
[2016-12-15 13:56] VITALS: BP 100/64
[2016-12-15] MEDS ORDERED: WARFARIN 5 MG TABLET PO-COUM ONE (18:00)
[2016-12-15 19:14] VITALS: BP 118/75
[2016-12-15] MEDS: DIVALPROEX 500 MG TAB.ER.24H PO SCH (21:44)
[2016-12-15] MEDS: METHYLNALTREXONE 12 MG/0.6 ML SQ SCH (21:46)
[2016-12-15] MEDS: DIAZEPAM 2 MG TABLET PO PRN (21:46)
[2016-12-16 01:04] VITALS: BP 112/77
[2016-12-16] MEDS: OXYcodone IR 5MG TABLET PO PRN ×4 (02:35→22:52)
[2016-12-16 07:39] VITALS: BP 108/68
[2016-12-16] MEDS: LAMOTRIGINE 25 MG TABLET PO SCH ×2 (08:57→20:57)
[2016-12-16] MEDS: LEVETIRACETAM 500 MG TABLET PO SCH ×2 (08:58→20:57)
[2016-12-16] MEDS: SENNA/DOCUSATE TABLET PO SCH (08:58)
[2016-12-16] MEDS: VENLAFAXINE 75 MG CAP ER PO SCH (08:58)
[2016-12-16] MEDS: GABAPENTIN 400 MG CAPSULE PO SCH ×2 (08:58→20:58)
[2016-12-16] MEDS: FUROSEMIDE 40 MG TABLET PO SCH (08:58)
[2016-12-16] MEDS: LACOSAMIDE 50 MG TABLET PO SCH ×2 (08:59→20:58)
[2016-12-16] MEDS ORDERED: ARGATROBAN/NACL 50 MG/50 ML 50 ML IV SCH (09:30)
[2016-12-16] MEDS: ARGATROBAN IN 0.9 % SOD CHLOR 250 ML IV SCH (11:15)
[2016-12-16 14:05] VITALS: BP 99/64
[2016-12-16] MEDS ORDERED: WARFARIN 3 MG TABLET PO-COUM SCH (18:00)
[2016-12-16] MEDS ORDERED: OMNIPAQUE 350 MG/ML, 150 ML BOTTLE ONE (18:02)
[2016-12-16 20:15] VITALS: BP 110/67
[2016-12-16] MEDS: DIVALPROEX 500 MG TAB.ER.24H PO SCH (20:57)
[2016-12-16] MEDS: DIAZEPAM 2 MG TABLET PO PRN (20:59)
[2016-12-17 02:58] VITALS: BP 115/75
[2016-12-17] MEDS: OXYcodone IR 5MG TABLET PO PRN ×3 (03:11→14:50)
[2016-12-17] MEDS: ARGATROBAN IN 0.9 % SOD CHLOR 250 ML IV SCH ×2 (06:22→18:27)
[2016-12-17 07:41] VITALS: BP 104/63
[2016-12-17] MEDS: ONDANSETRON 2MG/ML, 2ML IVPush PRN (09:15)
[2016-12-17] MEDS: LEVETIRACETAM 500 MG TABLET PO SCH ×2 (09:15→20:42)
[2016-12-17] MEDS: LACOSAMIDE 50 MG TABLET PO SCH ×2 (09:15→20:43)
[2016-12-17] MEDS: GABAPENTIN 400 MG CAPSULE PO SCH ×2 (09:15→20:43)
[2016-12-17] MEDS: FUROSEMIDE 40 MG TABLET PO SCH (09:15)
[2016-12-17] MEDS: VENLAFAXINE 75 MG CAP ER PO SCH (09:15)
[2016-12-17] MEDS: LAMOTRIGINE 25 MG TABLET PO SCH ×2 (09:16→20:42)
[2016-12-17] MEDS: SENNA/DOCUSATE TABLET PO SCH (09:16)
[2016-12-17 13:59] VITALS: BP 110/67
[2016-12-17 19:49] VITALS: BP 113/73
[2016-12-17] MEDS: DIVALPROEX 500 MG TAB.ER.24H PO SCH (20:42)
[2016-12-17] MEDS: METHYLNALTREXONE 12 MG/0.6 ML SQ SCH (21:00)
[2016-12-17] MEDS ORDERED: WARFARIN 1 MG TABLET PO-COUM ONE (22:00)
[2016-12-18] MEDS: OXYcodone IR 5MG TABLET PO PRN ×5 (00:49→21:20)
[2016-12-18 01:21] VITALS: BP 135/80
[2016-12-18 07:04] VITALS: BP 115/73
[2016-12-18] MEDS: LAMOTRIGINE 25 MG TABLET PO SCH ×2 (09:00→21:21)
[2016-12-18] MEDS: VENLAFAXINE 75 MG CAP ER PO SCH (10:01)
[2016-12-18] MEDS: LACOSAMIDE 50 MG TABLET PO SCH ×2 (10:01→21:20)
[2016-12-18] MEDS: LEVETIRACETAM 500 MG TABLET PO SCH ×2 (10:02→21:21)
[2016-12-18] MEDS: SENNA/DOCUSATE TABLET PO SCH (10:02)
[2016-12-18] MEDS: GABAPENTIN 400 MG CAPSULE PO SCH ×2 (10:02→21:20)
[2016-12-18] MEDS: FUROSEMIDE 40 MG TABLET PO SCH (10:02)
[2016-12-18] MEDS ORDERED: ARGATROBAN IN 0.9 % SOD CHLOR 250 ML IV SCH (10:18)
[2016-12-18] MEDS: ARGATROBAN IN 0.9 % SOD CHLOR 250 ML IV SCH (10:32)
[2016-12-18 14:25] VITALS: BP 104/68
[2016-12-18] MEDS ORDERED: WARFARIN 1 MG TABLET PO-COUM ONE (18:00)
[2016-12-18 20:01] VITALS: BP 130/79
[2016-12-18] MEDS: DIVALPROEX 500 MG TAB.ER.24H PO SCH (21:21)
[2016-12-19] MEDS: OXYcodone IR 5MG TABLET PO PRN ×8 (00:11→23:52)
[2016-12-19] MEDS: ARGATROBAN IN 0.9 % SOD CHLOR 250 ML IV SCH ×2 (00:52→17:52)
[2016-12-19 02:12] VITALS: BP 124/76
[2016-12-19 05:40] LABS: HEMATOCRIT 32.6 % (39.2-51.8); HEMOGLOBIN 10.7 g/dL (13.7-18.0); WHITE BLOOD COUNT 4.9 x10^3/uL (3.4-10)
[2016-12-19] MEDS: VENLAFAXINE 75 MG CAP ER PO SCH (08:32)
[2016-12-19] MEDS: LEVETIRACETAM 500 MG TABLET PO SCH ×2 (08:33→20:42)
[2016-12-19] MEDS: LACOSAMIDE 50 MG TABLET PO SCH ×2 (08:33→20:43)
[2016-12-19] MEDS: LAMOTRIGINE 25 MG TABLET PO SCH ×2 (08:33→20:42)
[2016-12-19 08:52] VITALS: BP 114/75
[2016-12-19] MEDS: SENNA/DOCUSATE TABLET PO SCH (08:53)
[2016-12-19] MEDS: FUROSEMIDE 40 MG TABLET PO SCH (08:54)
[2016-12-19] MEDS: GABAPENTIN 400 MG CAPSULE PO SCH ×2 (08:54→20:43)
[2016-12-19] MEDS: DIAZEPAM 2 MG TABLET PO PRN (11:57)
[2016-12-19 14:19] VITALS: BP 108/72
[2016-12-19] MEDS ORDERED: ENALAPRILAT 1.25 MG/ML, 2ML IVPush PRN (18:30)
[2016-12-19] MEDS ORDERED: hydrALAzine 20 MG/ML, 1ML IVPush PRN (18:30)
[2016-12-19 20:00] VITALS: BP 128/75
[2016-12-19] MEDS: DIVALPROEX 500 MG TAB.ER.24H PO SCH (20:41)
[2016-12-19] MEDS: METHYLNALTREXONE 12 MG/0.6 ML SQ SCH (20:44)
[2016-12-20 02:00] VITALS: BP 115/71
[2016-12-20] MEDS: OXYcodone IR 5MG TABLET PO PRN ×2 (02:57→06:34)
[2016-12-20] MEDS: FUROSEMIDE 40 MG TABLET PO SCH (08:49)
[2016-12-20] MEDS: GABAPENTIN 400 MG CAPSULE PO SCH ×2 (08:49→20:07)
[2016-12-20] MEDS: SENNA/DOCUSATE TABLET PO SCH (08:49)
[2016-12-20] MEDS: LEVETIRACETAM 500 MG TABLET PO SCH ×2 (08:49→20:07)
[2016-12-20] MEDS: LACOSAMIDE 50 MG TABLET PO SCH ×2 (08:50→20:08)
[2016-12-20] MEDS: VENLAFAXINE 75 MG CAP ER PO SCH (08:50)
[2016-12-20] MEDS: ARGATROBAN IN 0.9 % SOD CHLOR 250 ML IV SCH (08:57)
[2016-12-20] MEDS: LAMOTRIGINE 25 MG TABLET PO SCH ×2 (08:58→20:08)
[2016-12-20 09:00] VITALS: BP 102/67
[2016-12-20 15:10] VITALS: BP 112/71
[2016-12-20] MEDS: DABIGATRAN 150 MG CAPSULE PO SCH (18:38)
[2016-12-20 19:38] VITALS: BP 97/65
[2016-12-20] MEDS: DIVALPROEX 500 MG TAB.ER.24H PO SCH (20:07)
[2016-12-21 02:55] VITALS: BP 112/74
[2016-12-21] MEDS: DIAZEPAM 2 MG TABLET PO PRN ×2 (02:55→09:20)
[2016-12-21] MEDS: DABIGATRAN 150 MG CAPSULE PO SCH ×2 (04:40→18:16)
[2016-12-21 07:44] VITALS: BP 117/73
[2016-12-21] MEDS: OXYcodone IR 5MG TABLET PO PRN ×3 (07:50→23:52)
[2016-12-21] MEDS: LAMOTRIGINE 25 MG TABLET PO SCH ×2 (07:50→19:45)
[2016-12-21] MEDS: LEVETIRACETAM 500 MG TABLET PO SCH ×2 (07:50→19:45)
[2016-12-21] MEDS: VENLAFAXINE 75 MG CAP ER PO SCH (07:50)
[2016-12-21] MEDS: FUROSEMIDE 40 MG TABLET PO SCH (07:51)
[2016-12-21] MEDS: GABAPENTIN 400 MG CAPSULE PO SCH ×2 (07:51→19:45)
[2016-12-21] MEDS: LACOSAMIDE 50 MG TABLET PO SCH ×2 (07:51→19:45)
[2016-12-21] MEDS: SENNA/DOCUSATE TABLET PO SCH (07:51)
[2016-12-21 13:35] VITALS: BP 126/82
[2016-12-21] MEDS ORDERED: DABI150C PO (13:57)
[2016-12-21] MEDS ORDERED: BISA10SU65 PR (13:57)
[2016-12-21 18:42] VITALS: BP 116/72
[2016-12-21] MEDS: METHYLNALTREXONE 12 MG/0.6 ML SQ SCH (19:10)
[2016-12-21] MEDS: DIVALPROEX 500 MG TAB.ER.24H PO SCH (19:45)
[2016-12-22 00:42] VITALS: BP 158/94
[2016-12-22] MEDS: DIAZEPAM 2 MG TABLET PO PRN ×2 (02:26→09:08)
[2016-12-22] MEDS: DABIGATRAN 150 MG CAPSULE PO SCH ×2 (04:20→17:32)
[2016-12-22] MEDS: OXYcodone IR 5MG TABLET PO PRN ×2 (04:20→11:49)
[2016-12-22 07:07] VITALS: BP 112/67
[2016-12-22] MEDS: METHYLNALTREXONE 12 MG/0.6 ML SQ SCH (09:00)
[2016-12-22] MEDS: VENLAFAXINE 75 MG CAP ER PO SCH (09:08)
[2016-12-22] MEDS: LACOSAMIDE 50 MG TABLET PO SCH ×2 (09:08→21:02)
[2016-12-22] MEDS: SENNA/DOCUSATE TABLET PO SCH (09:09)
[2016-12-22] MEDS: FUROSEMIDE 40 MG TABLET PO SCH (09:09)
[2016-12-22] MEDS: GABAPENTIN 400 MG CAPSULE PO SCH ×2 (09:09→21:03)
[2016-12-22] MEDS: LAMOTRIGINE 25 MG TABLET PO SCH ×2 (09:10→21:00)
[2016-12-22] MEDS: LEVETIRACETAM 500 MG TABLET PO SCH ×2 (09:13→21:02)
[2016-12-22 12:13] VITALS: BP 129/80
[2016-12-22 20:00] VITALS: BP 110/69
[2016-12-22] MEDS: DIVALPROEX 500 MG TAB.ER.24H PO SCH (21:03)
[2016-12-23] MEDS: OXYcodone IR 5MG TABLET PO PRN ×3 (00:55→17:02)
[2016-12-23 02:55] VITALS: BP 124/78
[2016-12-23] MEDS: DABIGATRAN 150 MG CAPSULE PO SCH ×2 (05:55→18:18)
[2016-12-23 07:22] VITALS: BP 102/67
[2016-12-23] MEDS: VENLAFAXINE 75 MG CAP ER PO SCH (09:31)
[2016-12-23] MEDS: SENNA/DOCUSATE TABLET PO SCH (09:31)
[2016-12-23] MEDS: LACOSAMIDE 50 MG TABLET PO SCH ×2 (09:31→20:53)
[2016-12-23] MEDS: FUROSEMIDE 40 MG TABLET PO SCH (09:31)
[2016-12-23] MEDS: LEVETIRACETAM 500 MG TABLET PO SCH ×2 (09:31→20:54)
[2016-12-23] MEDS: GABAPENTIN 400 MG CAPSULE PO SCH ×2 (09:31→20:53)
[2016-12-23] MEDS: LAMOTRIGINE 25 MG TABLET PO SCH ×2 (09:33→20:54)
[2016-12-23 15:30] VITALS: BP 127/75
[2016-12-23] MEDS: DIAZEPAM 2 MG TABLET PO PRN (18:18)
[2016-12-23 19:46] VITALS: BP 100/65
[2016-12-23] MEDS: DIVALPROEX 500 MG TAB.ER.24H PO SCH (20:54)
[2016-12-24 01:58] VITALS: BP 127/84
[2016-12-24] MEDS: OXYcodone IR 5MG TABLET PO PRN ×4 (02:08→14:46)
[2016-12-24] MEDS: DIAZEPAM 2 MG TABLET PO PRN ×2 (04:18→14:46)
[2016-12-24 06:04] LABS: BLOOD UREA NITROGEN 12 mg/dL (7-18)
[2016-12-24] MEDS: DABIGATRAN 150 MG CAPSULE PO SCH ×2 (06:04→16:38)
[2016-12-24] MEDS: LACOSAMIDE 50 MG TABLET PO SCH (08:10)
[2016-12-24] MEDS: GABAPENTIN 400 MG CAPSULE PO SCH (08:11)
[2016-12-24] MEDS: FUROSEMIDE 40 MG TABLET PO SCH (08:11)
[2016-12-24] MEDS: LAMOTRIGINE 25 MG TABLET PO SCH (08:12)
[2016-12-24] MEDS: LEVETIRACETAM 500 MG TABLET PO SCH (08:13)
[2016-12-24] MEDS: SENNA/DOCUSATE TABLET PO SCH (08:13)
[2016-12-24] MEDS: VENLAFAXINE 75 MG CAP ER PO SCH (08:14)
[2016-12-24] MEDS: METHYLNALTREXONE 12 MG/0.6 ML SQ SCH (08:14)
[2016-12-24 08:17] VITALS: BP 120/70
[2016-12-24 13:43] VITALS: BP 121/79
[2016-12-24] MEDS ORDERED: FURO40TA6 PO (13:55)
[2016-12-24 17:00] VITALS: BP 132/76
== END 2016-12-24 17:10 | DRG 270 ==
LOC: ED 19:49 → EDIP 19:50 → ED 20:08 → 4NOR 21:34 → CCU 11-18 19:22 → ICU 11-19 06:44 → CCU 11-20 16:57 → 4WST 11-21 23:38 → 4NOR 12-12 17:57
PROVIDERS: ADMIT Internal Medicine; ATTEND Family Medicine
PROC: 3E03317 Introduction of Other Thrombolytic into Peripheral Vein, Percutaneous Approach (ICD-10-PCS; principal; 2016-11-19)
PROC: B51D1ZZ Fluoroscopy of Bilateral Lower Extremity Veins using Low Osmolar Contrast (ICD-10-PCS; 2016-11-19)
PROC: 06CG3ZZ Extirpation of Matter from Left External Iliac Vein, Percutaneous Approach (ICD-10-PCS; 2016-11-20)
PROC: 06CF3ZZ Extirpation of Matter from Right External Iliac Vein, Percutaneous Approach (ICD-10-PCS; 2016-11-20)
PROC: 06CM3ZZ Extirpation of Matter from Right Femoral Vein, Percutaneous Approach (ICD-10-PCS; 2016-11-20)
PROC: 06CN3ZZ Extirpation of Matter from Left Femoral Vein, Percutaneous Approach (ICD-10-PCS; 2016-11-20)
PROC: B51D1ZZ Fluoroscopy of Bilateral Lower Extremity Veins using Low Osmolar Contrast (ICD-10-PCS; 2016-11-20)
DX: I82.413 Acute embolism and thrombosis of femoral vein, bilateral (principal); I26.99 Other pulmonary embolism without acute cor pulmonale; I82.220 Acute embolism and thrombosis of inferior vena cava; E44.0 Moderate protein-calorie malnutrition; Z68.41 Body mass index [BMI] 40.0-44.9, adult; I82.433 Acute embolism and thrombosis of popliteal vein, bilateral; I82.429 Acute embolism and thrombosis of unspecified iliac vein; I82.443 Acute embolism and thrombosis of tibial vein, bilateral; G40.909 Epilepsy, unspecified, not intractable, without status epilepticus; F99 Mental disorder, not otherwise specified; D64.9 Anemia, unspecified; K59.00 Constipation, unspecified; F17.210 Nicotine dependence, cigarettes, uncomplicated; D75.89 Other specified diseases of blood and blood-forming organs; E66.01 Morbid (severe) obesity due to excess calories; D47.3 Essential (hemorrhagic) thrombocythemia; Z79.899 Other long term (current) drug therapy; Z82.5 Family history of asthma and other chronic lower respiratory diseases; Z83.3 Family history of diabetes mellitus; Z92.3 Personal history of irradiation; Z92.21 Personal history of antineoplastic chemotherapy; Z90.79 Acquired absence of other genital organ(s); Z85.46 Personal history of malignant neoplasm of prostate; Z79.01 Long term (current) use of anticoagulants; Z22.322 Carrier or suspected carrier of Methicillin resistant Staphylococcus aureus; I82.91 Chronic embolism and thrombosis of unspecified vein
CPT/HCPCS: 36415; 37187; 37212; 37213; 37214; 70450; 71010; 71260; 74177; 75822; 80048; 80053; 80061; 81003; 83036; 83605; 83735; 83880; 84153; 84439; 84443; 84484; 85025; 85384; 85520; 85610; 85730; 87081; 93005; 93306; 93970; 96365; 99156; 99157; J0883; J1644; J2250; J2405; J2997; J3010; J3490; Q9966; Q9967; C1751; C1757; C1769; C1894; G0103; J1940; J2270; J2310; J7050

== ENCOUNTER 2017-01-21 12:14 | Emergency (ER) | payer MEDICAID ==
[~2017-01-21] VITALS: Ht 195.6 cm; Wt 136.0 kg
[~2017-01-21 12:14] MED LIST changes: +BISA10SU65 PR; +DABI150C PO; +FURO40TA6 PO; +HYDR-3237 PO; +METH20TA5 PO; +RIVA15TA PO
[2017-01-21] MEDS ORDERED: ONDANSETRON 2MG/ML, 2ML IVPush ONE (12:30)
[2017-01-21] MEDS ORDERED: SODIUM CHLORIDE 0.9% 1,000ML IVBOLUS ONE (12:30)
[2017-01-21] MEDS ORDERED: SODIUM CHLORIDE FLUSH 10ML SYR IVF ONE (12:30)
[2017-01-21 12:47] LABS: HEMATOCRIT 40.6 % (39.2-51.8); HEMOGLOBIN 13.4 g/dL (13.7-18.0)
[2017-01-21] MEDS ORDERED: MORPHINE SULFATE 4 MG/ML, 1ML ONE ×2 (12:53→15:47)
[2017-01-21] MEDS ORDERED: ONDANSETRON 2MG/ML, 2ML ONE (12:53)
[2017-01-21] MEDS ORDERED: LORazepam 2 MG/ML, 1ML ONE (12:54)
[2017-01-21] MEDS: MORPHINE SULFATE 4 MG/ML, 1ML IVPush PRN ×2 (12:56→15:50)
[2017-01-21 13:00] LABS: BLOOD UREA NITROGEN 10 mg/dL (7-18)
[2017-01-21] MEDS ORDERED: LORazepam 2 MG/ML, 1ML IVPush ONE (13:00)
[2017-01-21 13:06] LABS: ASPARTATE AMINO TRANSFERASE 14 U/L (15-37)
[2017-01-21] MEDS ORDERED: OMNIPAQUE 350 MG/ML, 150 ML BOTTLE ONE (15:55)
[2017-01-21] MEDS ORDERED: OXYcodone/APAP 10/325MG TABLET ONE (16:53)
[2017-01-21] MEDS ORDERED: OXYcodone/APAP 10/325MG TABLET PO ONE (17:00)
[2017-01-21 17:01] VITALS: BP 127/84
== END 2017-01-21 17:06 | disposition home or self-care (01) ==
LOC: ED 12:38
DX: I82.411 Acute embolism and thrombosis of right femoral vein (principal); I82.433 Acute embolism and thrombosis of popliteal vein, bilateral; I82.413 Acute embolism and thrombosis of femoral vein, bilateral
CPT/HCPCS: 36415; 74174; 80053; 81003; 83880; 85025; 85610; 85730; 93005; 93970; 96361; 96374; 96375; 99285; J2060; J2405; J7030; Q9967

== ENCOUNTER 2017-02-15 14:24 | Inpatient (IN) | payer MEDICAID ==
[~2017-02-15] VITALS: Ht 195.6 cm; Wt 153.9 kg
[2017-02-15] MEDS ORDERED: LORazepam 2 MG/ML, 1ML ONE (14:50)
[2017-02-15] MEDS ORDERED: LACOSAMIDE 50 MG TABLET PO ONE (15:00)
[2017-02-15] MEDS ORDERED: SODIUM CHLORIDE FLUSH 10ML SYR IVF ONE (15:00)
[2017-02-15] MEDS ORDERED: LORazepam 2 MG/ML, 1ML IVPush ONE (15:00)
[2017-02-15 15:15] LABS: HEMATOCRIT 40.3 % (39.2-51.8); HEMOGLOBIN 13.5 g/dL (13.7-18.0); WHITE BLOOD COUNT 7.5 x10^3/uL (3.4-10)
[2017-02-15 15:26] LABS: ASPARTATE AMINO TRANSFERASE 17 U/L (15-37); BLOOD UREA NITROGEN 13 mg/dL (7-18)
[2017-02-15] MEDS ORDERED: NS + 20MEQ KCL 1,000 ML IV SCH (16:52)
[2017-02-15 16:59] LABS: DAU SCREEN DISCLAIMER
[2017-02-15] MEDS ORDERED: ONDANSETRON 2MG/ML, 2ML IVPush PRN (17:00)
[2017-02-15] MEDS ORDERED: ACETAMINOPHEN 325 MG TABLET PO PRN (17:00)
[2017-02-15] MEDS ORDERED: POLYETHYLENE GLYCOL 17 GM PACKET PO PRN (17:00)
[2017-02-15] MEDS ORDERED: NICOTINE 7 MG/24 HR PATCH.TD24 TD SCH (17:00)
[2017-02-15] MEDS ORDERED: DOCUSATE 100 MG CAPSULE PO PRN (17:00)
[2017-02-15] MEDS: LORazepam 2 MG/ML, 1ML IVPush PRN ×2 (17:58→22:46)
[2017-02-15] MEDS: OXYcodone IR 5MG TABLET PO PRN (18:31)
[2017-02-15 19:20] VITALS: BP 123/78
[2017-02-15] MEDS: DABIGATRAN 150 MG CAPSULE PO SCH (19:37)
[2017-02-15] MEDS ORDERED: LACOSAMIDE 200 MG PO SCH (21:00)
[2017-02-15] MEDS: METHYLPHENIDATE HCL 27 MG PO SCH (21:00)
[2017-02-15 22:44] VITALS: BP 124/82
[2017-02-15] MEDS: GABAPENTIN 400 MG CAPSULE PO SCH (22:51)
[2017-02-15] MEDS: LAMOTRIGINE 25 MG TABLET PO SCH (23:09)
[2017-02-16] MEDS: morphine SULFATE 10 MG/ML, 1ML IVPush PRN ×3 (00:33→08:20)
[2017-02-16] MEDS: OXYcodone IR 5MG TABLET PO PRN ×2 (02:09→11:23)
[2017-02-16 02:11] VITALS: BP 101/63
[2017-02-16] MEDS ORDERED: LACOSAMIDE 50 MG TABLET PO SCH (05:00)
[2017-02-16] MEDS: METHYLPHENIDATE HCL 27 MG PO SCH (08:07)
[2017-02-16] MEDS: GABAPENTIN 400 MG CAPSULE PO SCH (08:21)
[2017-02-16] MEDS: DABIGATRAN 150 MG CAPSULE PO SCH (08:22)
[2017-02-16] MEDS: LAMOTRIGINE 25 MG TABLET PO SCH (08:23)
[2017-02-16 08:36] VITALS: BP 132/84
[2017-02-16] MEDS ORDERED: VENLAFAXINE 75 MG CAP ER PO SCH (09:00)
[2017-02-16] MEDS ORDERED: SENNA/DOCUSATE TABLET PO SCH (09:00)
[2017-02-16] MEDS ORDERED: FUROSEMIDE 40 MG TABLET PO SCH (09:00)
[2017-02-16] MEDS ORDERED: LEVETIRACETAM 1000 MG PO SCH (10:00)
[2017-02-16] MEDS ORDERED: DIVA500T17 PO (10:20)
[2017-02-16] MEDS ORDERED: LEVE10007 PO (10:20)
[2017-02-16] MEDS ORDERED: LORA-446 PO (10:20)
[2017-02-16] MEDS ORDERED: LEVETIRACETAM 500 MG TABLET PO SCH (10:30)
[2017-02-16] MEDS ORDERED: DIVALPROEX 500 MG TAB.ER.24H PO SCH ×2 (12:30→21:00)
== END 2017-02-16 14:06 | disposition home or self-care (01) | DRG 101 ==
LOC: ED 14:40 → EDIP 15:34 → 4WST 17:47
PROVIDERS: ADMIT Internal Medicine; ATTEND Family Medicine
DX: G40.909 Epilepsy, unspecified, not intractable, without status epilepticus (principal); D68.69 Other thrombophilia; F17.200 Nicotine dependence, unspecified, uncomplicated; F41.9 Anxiety disorder, unspecified; Z79.01 Long term (current) use of anticoagulants; Z86.718 Personal history of other venous thrombosis and embolism; Z91.19 Patient's noncompliance with other medical treatment and regimen
CPT/HCPCS: 36415; 80053; 80307; 85025; 93005; 96374; J3480; G0479; J2060; J2270

== ENCOUNTER 2018-09-27 22:07 | Inpatient (IN) | payer MEDICAID ==
[~2018-09-27] VITALS: Ht 195.6 cm; Wt 139.4 kg
[~2018-09-27 22:07] MED LIST changes: -GABA600T2 PO; +GABA600T7 PO; -LAMO25TA PO; +LAMO25TA9 PO; +LORA-446 PO
--- NOTE | 2018-09-27 22:35 | NUR ---
PT BIB EMS FOR SEIZURE LIKE ACTIVITY FROM HOME IN [place]. PTS REPORTS HE HAD A TOTAL OF 3 SEZIURES. EMS ON SCENE FOUND PT IN POSTICTAL STATE AND HAD ANOTHER WHILE IN ROUTE. EMS GAVE PT IN ROUTE 10MG VERSED IM, 15MG BENADRYL IM, 5MG HALDOL IM WELL DUE TO PT BECOMING COMBATIVE. PT REPORTS THAT PT RECENTYL RAN OUT OF HIS MEDICATIONS AND ONLY TAKING KEPPRA AT THIS TIME. PT ALSO REPORTS DRINKING 1 PINT OF ETOH TONIGHT WELL. PT IS ABLE TO FOLLOW COMMANDS AND IS EASILY AROUSABLE. SLIGHTLY COMBATIVE BUT EASILY REORIENTED AT THIS TIME. VSS AND EKG COMPLETED. PIV PLACED BY THIS RN FOR SAFETY AND WRAPPEED IN [place]. JOSH CHO AT BEDSIDE EVALUATING.
[2018-09-27 23:02] LABS: BASOPHILS # (AUTO) 0.01 x10^3/uL (0-0.1); BASOPHILS % (AUTO) 0 % (0-1); EOSINOPHILS % (AUTO) 3 % (1-7); LYMPHOCYTES # (AUTO) 1.39 x10^3/uL (1-3.4); LYMPHOCYTES % (AUTO) 21 % (22-44); MD NO; MEAN CORPUSCULAR HEMOGLOBIN 30.3 pg (27.5-34.5); MEAN CORPUSCULAR HGB CONC 32.5 g/dL (33.2-36.2); MEAN CORPUSCULAR VOLUME 93.3 fL (81-97); MEAN PLATELET VOLUME 8.4 fL (7.4-10.4); MONOCYTES % (AUTO) 5 % (2-9); NEUTROPHILS # (AUTO) 4.58 x10^3/uL (1.8-6.8); NEUTROPHILS % (AUTO) 71 % (42-75); PLATELET COUNT 254 x10^3/uL (130-400); RED BLOOD COUNT 5.23 x10^6/uL (4.38-5.82); RED CELL DISTRIBUTION WIDTH 14.1 % (9.4-14.8)
[2018-09-27 23:09] LABS: INTERNATIONAL NORMALIZED RATIO 1.03 (0.93-1.1); PROTHROMBIN TIME 10.8 Seconds (9.6-11.5)
[2018-09-27 23:12] LABS: ALANINE AMINOTRANSFERASE 64 U/L (12-78); ALBUMIN 3.6 g/dL (3.4-5.0); ANION GAP 9 mmol/L (5-15); CALCIUM 8.5 mg/dL (8.5-10.1); CHLORIDE 110 mmol/L (98-107); CREATININE 0.91 mg/dL (0.7-1.3)
[2018-09-27 23:14] LABS: ALKALINE PHOSPHATASE 97 U/L (45-117); BILIRUBIN,TOTAL 0.2 mg/dL (0.2-1.0); TOTAL PROTEIN 7.8 g/dL (6.4-8.2)
--- NOTE | 2018-09-27 23:41 | NUR ---
PT UNABLE TO AWAKEN EASILY, PT IS STILL VERY LETHARGIC AND DIFFICULT TO AROUSE. PT UNABLE TO AMBULATE SAFELY.
--- NOTE | 2018-09-28 00:06 | NUR ---
PT FOUND STANDING BY BED URINATING ON FLOOR. URINAL AT BEDSIDE. PT APPEARS TO BE CONFUSED STILL AT THIS MOMENT. DELPHINE RUEDA AT BEDSIDE PROVIDING REPORT. PT BACK TO BED WITHOUT DIFFICULTY. NO FAMILY AT BEDSIDE. WILL DISCUSS PLANS WITH DR. MORENO
--- NOTE | 2018-09-28 00:08 | NUR ---
BEDSIDE REPORT TO JAYANT AKERS.
--- NOTE | 2018-09-28 00:13 | NUR ---
SPOKE WITH DR. MORENO IN REGARDS TO THE PT'S CONDITION AND LINGERING CONFUSION. PT IS TO BE ADMITTED FOR FURTHER OBSERVATION
--- NOTE | 2018-09-28 00:28 | NUR ---
HOSPITALIST AT BEDSIDE EVALUATING PT
[2018-09-28] MEDS ORDERED: SODIUM CHLORIDE FLUSH 10ML SYR IVF PRN (00:30)
[2018-09-28] MEDS ORDERED: LORazepam 2 MG/ML, 1ML IVPush PRN (01:00)
[2018-09-28] MEDS ORDERED: POLYETHYLENE GLYCOL 17 GM PACKET PO PRN (01:00)
[2018-09-28] MEDS ORDERED: BISACODYL 10 MG SUPP PR PRN (01:00)
[2018-09-28] MEDS ORDERED: ONDANSETRON 2MG/ML, 2ML IVPush PRN (01:00)
--- NOTE | 2018-09-28 01:03 | NUR ---
REPORT TO DELPHINE STOKES
[2018-09-28 02:02] VITALS: BP 127/72
[2018-09-28] MEDS: DABIGATRAN 150 MG CAPSULE PO SCH ×2 (02:21→11:32)
[2018-09-28 06:02] LABS: BASOPHILS # (AUTO) 0.02 x10^3/uL (0-0.1); BASOPHILS % (AUTO) 0 % (0-1); EOSINOPHILS # (AUTO) 0.24 x10^3/uL (0-0.4); EOSINOPHILS % (AUTO) 4 % (1-7); LYMPHOCYTES # (AUTO) 1.72 x10^3/uL (1-3.4); LYMPHOCYTES % (AUTO) 32 % (22-44); MD NO; MEAN CORPUSCULAR HEMOGLOBIN 31.2 pg (27.5-34.5); MEAN CORPUSCULAR HGB CONC 33.4 g/dL (33.2-36.2); MEAN CORPUSCULAR VOLUME 93.3 fL (81-97); MEAN PLATELET VOLUME 8.6 fL (7.4-10.4); MONOCYTES # (AUTO) 0.34 x10^3/uL (0.2-0.8); MONOCYTES % (AUTO) 6 % (2-9); NEUTROPHILS # (AUTO) 3.02 x10^3/uL (1.8-6.8); NEUTROPHILS % (AUTO) 57 % (42-75); PLATELET COUNT 248 x10^3/uL (130-400)
[2018-09-28 06:14] LABS: ALBUMIN 3.5 g/dL (3.4-5.0); ANION GAP 8 mmol/L (5-15); CALCIUM 8.4 mg/dL (8.5-10.1); CHLORIDE 111 mmol/L (98-107)
[2018-09-28 06:18] LABS: ALANINE AMINOTRANSFERASE 75 U/L (12-78); ALKALINE PHOSPHATASE 100 U/L (45-117); BILIRUBIN,TOTAL 0.6 mg/dL (0.2-1.0); CREATININE 0.84 mg/dL (0.7-1.3); TOTAL PROTEIN 7.4 g/dL (6.4-8.2)
[2018-09-28 07:29] LABS: BARBITURATE SCREEN, URINE Negative (Negative); BENZODIAZEPINE SCREEN, URINE Positive (Negative); CANNABINOID SCREEN, URINE Positive (Negative); COCAINE SCREEN, URINE Negative (Negative); METHADONE SCREEN, URINE Negative (Negative); OPIATE SCREEN, URINE Positive (Negative)
[2018-09-28 07:30] LABS: AMPHETAMINE SCREEN, URINE Positive (Negative)
[2018-09-28 07:36] VITALS: BP 150/82
[2018-09-28] MEDS: SENNA/DOCUSATE TABLET PO SCH (09:00)
[2018-09-28] MEDS: METHYLPHENIDATE HCL 27 MG HOMEMEDPO SCH ×2 (09:00→20:02)
[2018-09-28] MEDS: SODIUM CHLORIDE FLUSH 10ML SYR IVF SCH ×2 (09:00→20:02)
[2018-09-28] MEDS: LACOSAMIDE 200 MG HOMEMEDPO SCH ×2 (09:00→20:02)
[2018-09-28] MEDS: GABAPENTIN 400 MG CAPSULE PO SCH ×2 (09:15→20:01)
[2018-09-28] MEDS: VENLAFAXINE 75 MG CAP ER PO SCH (09:15)
[2018-09-28] MEDS: DIVALPROEX 500 MG TAB.ER.24H PO SCH (09:15)
[2018-09-28] MEDS: FUROSEMIDE 40 MG TABLET PO SCH (09:15)
[2018-09-28] MEDS: LAMOTRIGINE 25 MG TABLET PO SCH ×2 (09:15→20:01)
[2018-09-28] MEDS: LEVETIRACETAM 500 MG TABLET PO SCH ×2 (09:15→20:02)
[2018-09-28] MEDS: ACETAMINOPHEN 325 MG TABLET PO PRN ×2 (11:32→19:56)
[2018-09-28 13:24] VITALS: BP 134/84
[2018-09-28] MEDS: FOLIC ACID 1 MG TABLET PO SCH (14:41)
[2018-09-28] MEDS: THIAMINE 100MG TABLET PO SCH (14:41)
[2018-09-28 19:29] VITALS: BP 103/65
[2018-09-28] MEDS: LORazepam 1MG TABLET PO PRN (19:56)
[2018-09-29] MEDS: DABIGATRAN 150 MG CAPSULE PO SCH ×2 (00:36→11:54)
[2018-09-29 02:39] VITALS: BP 149/81
[2018-09-29] MEDS: DIVALPROEX 500 MG TAB.ER.24H PO SCH (07:43)
[2018-09-29 08:00] VITALS: BP 133/67
[2018-09-29] MEDS: THIAMINE 100MG TABLET PO SCH (08:02)
[2018-09-29] MEDS: LEVETIRACETAM 500 MG TABLET PO SCH ×2 (08:02→20:13)
[2018-09-29] MEDS: LAMOTRIGINE 25 MG TABLET PO SCH ×4 (08:02→20:14)
[2018-09-29] MEDS: VENLAFAXINE 75 MG CAP ER PO SCH (08:03)
[2018-09-29] MEDS: GABAPENTIN 400 MG CAPSULE PO SCH ×2 (08:03→20:14)
[2018-09-29] MEDS: ACETAMINOPHEN 325 MG TABLET PO PRN ×3 (08:03→20:21)
[2018-09-29] MEDS: FOLIC ACID 1 MG TABLET PO SCH (08:03)
[2018-09-29] MEDS: FUROSEMIDE 40 MG TABLET PO SCH (08:03)
[2018-09-29] MEDS: SODIUM CHLORIDE FLUSH 10ML SYR IVF SCH ×2 (08:06→20:14)
[2018-09-29] MEDS: LACOSAMIDE 200 MG HOMEMEDPO SCH ×2 (08:06→20:14)
[2018-09-29] MEDS: SENNA/DOCUSATE TABLET PO SCH (08:07)
[2018-09-29] MEDS: METHYLPHENIDATE HCL 27 MG HOMEMEDPO SCH ×2 (08:07→20:15)
[2018-09-29] MEDS ORDERED: LAMO25TA9 PO (10:10)
[2018-09-29] MEDS: LORazepam 1MG TABLET PO PRN (11:54)
[2018-09-29 14:00] VITALS: BP 118/71
[2018-09-29 18:40] VITALS: BP 144/80
[2018-09-30] MEDS: LORazepam 1MG TABLET PO PRN ×3 (00:24→22:17)
[2018-09-30] MEDS: DABIGATRAN 150 MG CAPSULE PO SCH ×3 (00:25→23:35)
[2018-09-30 00:33] VITALS: BP 125/77
[2018-09-30] MEDS: LAMOTRIGINE 25 MG TABLET PO SCH ×4 (05:07→20:38)
[2018-09-30 08:01] VITALS: BP 135/78
[2018-09-30] MEDS: GABAPENTIN 400 MG CAPSULE PO SCH ×2 (08:42→20:38)
[2018-09-30] MEDS: SODIUM CHLORIDE FLUSH 10ML SYR IVF SCH ×2 (08:42→20:39)
[2018-09-30] MEDS: DIVALPROEX 500 MG TAB.ER.24H PO SCH (08:43)
[2018-09-30] MEDS: LEVETIRACETAM 500 MG TABLET PO SCH ×2 (08:43→20:38)
[2018-09-30] MEDS: METHYLPHENIDATE HCL 27 MG HOMEMEDPO SCH ×2 (08:44→20:37)
[2018-09-30] MEDS: FUROSEMIDE 40 MG TABLET PO SCH (08:44)
[2018-09-30] MEDS: LACOSAMIDE 200 MG HOMEMEDPO SCH ×2 (08:44→20:36)
[2018-09-30] MEDS: THIAMINE 100MG TABLET PO SCH (08:44)
[2018-09-30] MEDS: FOLIC ACID 1 MG TABLET PO SCH (08:44)
[2018-09-30] MEDS: SENNA/DOCUSATE TABLET PO SCH (08:45)
[2018-09-30] MEDS: VENLAFAXINE 75 MG CAP ER PO SCH (08:50)
[2018-09-30 13:10] VITALS: BP 130/82
[2018-09-30 18:44] VITALS: BP 133/77
[2018-10-01] VITALS (10 sets, daily range): BP systolic 102–130; BP diastolic 66–86
[2018-10-01] MEDS: LAMOTRIGINE 25 MG TABLET PO SCH ×4 (05:37→22:05)
[2018-10-01] MEDS: NICOTINE 21 MG/24 HR PATCH.TD24 TD SCH ×2 (05:39→08:05)
[2018-10-01] MEDS: SODIUM CHLORIDE FLUSH 10ML SYR IVF SCH ×2 (08:02→22:06)
[2018-10-01] MEDS: VENLAFAXINE 75 MG CAP ER PO SCH (08:03)
[2018-10-01] MEDS: SENNA/DOCUSATE TABLET PO SCH (08:03)
[2018-10-01] MEDS: DIVALPROEX 500 MG TAB.ER.24H PO SCH (08:03)
[2018-10-01] MEDS: FOLIC ACID 1 MG TABLET PO SCH (08:03)
[2018-10-01] MEDS: THIAMINE 100MG TABLET PO SCH (08:03)
[2018-10-01] MEDS: GABAPENTIN 400 MG CAPSULE PO SCH ×2 (08:04→22:05)
[2018-10-01] MEDS: LACOSAMIDE 200 MG HOMEMEDPO SCH ×2 (08:04→22:07)
[2018-10-01] MEDS: FUROSEMIDE 40 MG TABLET PO SCH (08:04)
[2018-10-01] MEDS: LEVETIRACETAM 500 MG TABLET PO SCH ×2 (08:04→22:06)
[2018-10-01] MEDS: METHYLPHENIDATE HCL 27 MG HOMEMEDPO SCH ×2 (08:04→22:06)
[2018-10-01] MEDS: LORazepam 1MG TABLET PO PRN (11:18)
[2018-10-01] MEDS: DABIGATRAN 150 MG CAPSULE PO SCH (13:52)
[2018-10-02] MEDS: DABIGATRAN 150 MG CAPSULE PO SCH ×3 (00:04→23:29)
[2018-10-02 00:05] VITALS: BP 129/85
[2018-10-02 01:04] VITALS: BP 127/82
[2018-10-02] MEDS: ACETAMINOPHEN 325 MG TABLET PO PRN ×4 (01:24→20:56)
[2018-10-02 02:13] VITALS: BP 141/84
[2018-10-02] MEDS: LAMOTRIGINE 25 MG TABLET PO SCH (05:17)
[2018-10-02 05:34] LABS: ALBUMIN 3.5 g/dL (3.4-5.0); ANION GAP 8 mmol/L (5-15); CALCIUM 8.8 mg/dL (8.5-10.1); CHLORIDE 104 mmol/L (98-107)
[2018-10-02 05:40] LABS: ALANINE AMINOTRANSFERASE 43 U/L (12-78); ALKALINE PHOSPHATASE 94 U/L (45-117); BILIRUBIN,TOTAL 0.5 mg/dL (0.2-1.0); CREATININE 1.06 mg/dL (0.7-1.3); TOTAL PROTEIN 7.7 g/dL (6.4-8.2)
[2018-10-02] MEDS ORDERED: POTASSIUM CHLORIDE 20 MEQ TAB.ER.PRT PO ONE (07:00)
[2018-10-02 08:23] VITALS: BP 100/61
[2018-10-02] MEDS: METHYLPHENIDATE HCL 27 MG HOMEMEDPO SCH ×2 (08:48→20:30)
[2018-10-02] MEDS: FUROSEMIDE 40 MG TABLET PO SCH (08:53)
[2018-10-02] MEDS: GABAPENTIN 400 MG CAPSULE PO SCH ×2 (08:53→20:47)
[2018-10-02] MEDS: DIVALPROEX 500 MG TAB.ER.24H PO SCH (08:53)
[2018-10-02] MEDS: NICOTINE 21 MG/24 HR PATCH.TD24 TD SCH (08:53)
[2018-10-02] MEDS: LEVETIRACETAM 500 MG TABLET PO SCH ×2 (08:53→20:48)
[2018-10-02] MEDS: FOLIC ACID 1 MG TABLET PO SCH (08:53)
[2018-10-02] MEDS: LACOSAMIDE 50 MG TABLET PO SCH ×2 (08:54→20:47)
[2018-10-02] MEDS: THIAMINE 100MG TABLET PO SCH (08:54)
[2018-10-02] MEDS: VENLAFAXINE 75 MG CAP ER PO SCH (08:54)
[2018-10-02] MEDS: SENNA/DOCUSATE TABLET PO SCH (08:54)
[2018-10-02] MEDS ORDERED: LAMOTRIGINE 100 MG TABLET PO SCH ×2 (09:00→21:00)
[2018-10-02] MEDS: SODIUM CHLORIDE FLUSH 10ML SYR IVF SCH ×2 (09:28→20:48)
[2018-10-02 12:24] VITALS: BP 120/77
[2018-10-02] MEDS: SODIUM CHLORIDE 0.9% 1,000 ML IV SCH (14:12)
[2018-10-02 18:44] VITALS: BP 117/77
[2018-10-02] MEDS: LAMOTRIGINE 100 MG TABLET PO SCH (20:47)
[2018-10-03 01:37] VITALS: BP 102/69
[2018-10-03] MEDS: SODIUM CHLORIDE 0.9% 1,000 ML IV SCH (04:26)
[2018-10-03 07:03] LABS: ALBUMIN 3.3 g/dL (3.4-5.0); ANION GAP 3 mmol/L (5-15); CALCIUM 8.7 mg/dL (8.5-10.1); CHLORIDE 107 mmol/L (98-107)
[2018-10-03 07:04] LABS: CREATININE 0.95 mg/dL (0.7-1.3)
[2018-10-03 07:10] VITALS: BP 98/62
[2018-10-03] MEDS: METHYLPHENIDATE HCL 27 MG HOMEMEDPO SCH (07:38)
[2018-10-03] MEDS: SENNA/DOCUSATE TABLET PO SCH (07:39)
[2018-10-03] MEDS: FUROSEMIDE 40 MG TABLET PO SCH (07:43)
[2018-10-03] MEDS: VENLAFAXINE 75 MG CAP ER PO SCH (07:43)
[2018-10-03] MEDS: THIAMINE 100MG TABLET PO SCH (07:43)
[2018-10-03] MEDS: FOLIC ACID 1 MG TABLET PO SCH (07:43)
[2018-10-03] MEDS: LAMOTRIGINE 100 MG TABLET PO SCH (07:43)
[2018-10-03] MEDS: DIVALPROEX 500 MG TAB.ER.24H PO SCH (07:43)
[2018-10-03] MEDS: LACOSAMIDE 50 MG TABLET PO SCH (07:44)
[2018-10-03] MEDS: GABAPENTIN 400 MG CAPSULE PO SCH (07:44)
[2018-10-03] MEDS: NICOTINE 21 MG/24 HR PATCH.TD24 TD SCH (07:44)
[2018-10-03] MEDS: LEVETIRACETAM 500 MG TABLET PO SCH (07:44)
[2018-10-03] MEDS: SODIUM CHLORIDE FLUSH 10ML SYR IVF SCH (07:45)
[2018-10-03] MEDS ORDERED: LAMO25TA5 PO (11:36)
[2018-10-03] MEDS ORDERED: NICO-487 TD (11:36)
[2018-10-03] MEDS ORDERED: FOLI-17 PO (11:36)
[2018-10-03] MEDS ORDERED: THIA100T67 PO (11:36)
[2018-10-03] MEDS: DABIGATRAN 150 MG CAPSULE PO SCH (12:24)
[2018-10-03 12:42] VITALS: BP 142/78
[2018-10-03 12:50] VITALS: BP 142/78
[2018-10-03] MEDS ORDERED: LACO200T PO (15:30)
[2018-10-03] MEDS ORDERED: DIVA500T17 PO (15:30)
== END 2018-10-03 16:05 | disposition home or self-care (01) | DRG 100 ==
LOC: ED 23:30 → EDIP 09-28 00:18 → 4EST 09-28 01:33 → 4WST 10-01 23:56
PROVIDERS: ADMIT Internal Medicine; ATTEND Internal Medicine
DX: G40.909 Epilepsy, unspecified, not intractable, without status epilepticus (principal); G92 Toxic encephalopathy; D68.59 Other primary thrombophilia; Z71.6 Tobacco abuse counseling; F10.10 Alcohol abuse, uncomplicated; F17.200 Nicotine dependence, unspecified, uncomplicated; F19.10 Other psychoactive substance abuse, uncomplicated; S01.81XA Laceration without foreign body of other part of head, initial encounter; W18.39XA Other fall on same level, initial encounter; Y93.89 Activity, other specified; Y92.89 Other specified places as the place of occurrence of the external cause; Y99.8 Other external cause status; Z79.01 Long term (current) use of anticoagulants; Z79.02 Long term (current) use of antithrombotics/antiplatelets; Z86.718 Personal history of other venous thrombosis and embolism; Z86.73 Personal history of transient ischemic attack (TIA), and cerebral infarction without residual deficits; Z91.14 Patient's other noncompliance with medication regimen
CPT/HCPCS: 36415; 70450; 80048; 80053; 80164; 80177; 80307; 82040; 82550; 82962; 85025; 85610; 85730; 93005; 95819; 99285; G0378; J2060; J7030